=== PATIENT | female | born 1990 | race African-American/Black ===

== ENCOUNTER → 2021-01-25 13:17 | Outpatient (CLI) | payer OTHER, SELFPAY ==
--- NOTE | ~2021-01-25 | US_ITS ---
EXAMINATION: US OB transvaginal DATE: 01/25/2021 13:43 INDICATION: Gestational dating TECHNIQUE: Real-time transvaginal obstetric ultrasound. FINDINGS: No prior studies for comparison. The uterus measures 9.7 x 5.7 x 5.6 cm. There is an intrauterine gestational sac demonstrated, althou gh no pole or yolk sac is identified. There is a 2.5 cm right ovarian cyst. No free fluid in th e pelvis. IMPRESSION: 1. Intrauterine gestational sac without pole or yolk sac, likely due to early gestational age. Recommend follow-up with quantitative beta-hCG levels and ultrasound as clinically indicated. 2: Corpus luteal cyst of the right ovary measuring 2.5 cm. Reviewed, dictated and finalized at location B. IMPRESSION: 1. Intrauterine gestational sac without pole or yolk sac, likely due to e dale gestational age. Recommend follow-up with quantitative beta-hCG levels and ultrasound as clinically indicated. 2: Corpus luteal cyst of the right ovary measuring 2.5 cm.
== END ==
PROVIDERS: Visit Provider Obstetrics & Gynecology
DX: Z34.91 Encounter for supervision of normal pregnancy, unspecified, first trimester (principal); Z3A.00 Weeks of gestation of pregnancy not specified; N83.11 Corpus luteum cyst of right ovary
CPT/HCPCS: 76817

== ENCOUNTER → 2021-02-05 10:14 | Outpatient (CLI) | payer OTHER, SELFPAY ==
--- NOTE | ~2021-02-05 | US_ITS ---
EXAMINATION: US OB transvaginal DATE: 02/05/2021 10:49 INDICATION: Uncertain date TECHNIQUE: Real-time pelvic transabdominal and transvaginal ultrasound was performed. COMPARISON: 01/05/2021 FINDINGS: The uterus measures 11.1 x 6.3 x 6.9 cm. There is an intrauterine gestational sac. A yolk sac is identified. heart motion is identified measuring 121 beats per minute (bpm) by M-mode Do ppler. The crown rump length measures 3 mm , which correlates with an estimated gestational age of 5 weeks and 6 day(s) (+/-) 4 day(s). The right ovary is not visualized however no right adnexal abnormality is seen. The left ovary measur es 2.7 x 1.7 x 1.8 cm. There is normal vascular flow in the left ovary. There is no free fluid in the pelvis. IMPRESSION: 1. Live intrauterine with an estimated gestational age of 5 weeks and 6 day(s) (+/-) 4 day( s) and an estimated delivery date of 10/02/2021. Reviewed, dictated and finalized at location A. IMPRESSION: 1. Live intrauterine with an estimated gestational age of 5 weeks and 6 day(s) (+/-) 4 day(s) and an estimated delivery date of 10/02/2021.
== END ==
PROVIDERS: Visit Provider Obstetrics & Gynecology
DX: Z36.87 Encounter for antenatal screening for uncertain dates (principal); Z3A.01 Less than 8 weeks gestation of pregnancy
CPT/HCPCS: 76817

== ENCOUNTER 2021-04-07 11:28 | Emergency (ER) | payer OTHER, MEDICAID, SELFPAY ==
[2021-04-07 11:58] VITALS: BP 135/83; PULSE 110; RESP 20; TEMP 36.3; O2SAT 100
--- NOTE | 2021-04-07 12:57 | PC.NURSE ---
Pt states she felt movement during FHT assessment, pt has non-labored respirations, NAD observed
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
== END 2021-04-07 13:38 | disposition home or self-care (01) ==
PROVIDERS: Emergency Provider Nurse Practitioner
DX: Z04.1 Encounter for examination and observation following transport accident (principal); O16.2 Unspecified maternal hypertension, second trimester; Z3A.14 14 weeks gestation of pregnancy; V49.40XA Driver injured in collision with unspecified motor vehicles in traffic accident, initial encounter
CPT/HCPCS: 99282

== ENCOUNTER 2021-04-22 09:36 | Observation (INO) | payer OTHER, MEDICAID, SELFPAY ==
[2021-04-22] VITALS (14 sets, daily range): BP systolic 106–138; BP diastolic 57–86; PULSE 89–125; RESP 16–24; TEMP 36.4–36.7; O2SAT 98–100
--- NOTE | 2021-04-22 09:40 | ECG_ITS ---
Measurements Intervals [place] Rate: 117 P: 37 [place]: 144 QRS: 12 QRSD: 79 T: 15 QT: 313 QTc: 437 Interpretive Statements SINUS TACHYCARDIA DELAYED PRECORDIAL R/S TRANSITION ABNORMAL ECG Electronically Signed On 04-22-2021 11:44:42 CDT by Michael Trotter D.O.
[2021-04-22 10:20] LABS: Basophils Percent Auto 0.2 % (0.2-1.2); Eosinophils Absolute Auto 0.2 K/mm3 (0-0.3); Hemoglobin 11.8 g/dL (12.0-15.0); Immature Granulocyte Absolute 0.05 K/mm3 (0.00-0.031); Immature Granulocyte Percent A 0.5 % (0-0.5); Lymphocytes Absolute Auto 2.22 K/mm3 (0.9-3.2); Lymphocytes Percent Auto 21.9 % (18.3-44.2); Mean Corpuscular HGB Conc 31.9 g/dl (32-36); Mean Corpuscular Volume 87.9 fl (80-100); Mean Platelet Volume 11.2 fl (7.4-10.4); Monocytes Percent Auto 10.3 % (2.6-8.5); Neutrophils Absolute Auto 6.6 K/mm3 (1.3-6.7); Neutrophils Percent Auto 65.1 % (45.5-73.1); Platelet Count Result 244 k/mm3 (150-375); Red Blood Count 4.21 M/mm3 (4.2-5.4); Red Cell Distribution Width 13.3 % (11.5-14.5); White Blood Count 10.1 K/mm3 (4.5-10.0)
[2021-04-22 10:32] LABS: Anion Gap 8 mmol/L (8-16); Blood Urea Nitrogen 5 mg/dL (7-17); Calcium 8.7 mg/dL (8.4-10.2); Carbon Dioxide 21 mmol/L (22-30); Chloride 107 mmol/L (98-107); Estimated Glomerular Filt Rate > 60; Glucose 105 mg/dL (65-110); Potassium 2.9 mmol/L (3.4-5.0); Sodium 136 mmol/L (137-145)
[2021-04-22 11:52] LABS: Add Urine Microscopic? YES; Appearance Urine Clear (Clear); Bilirubin Urine Negative (Negative); Blood Urine Negative (Negative); Color Urine Yellow (Yellow); Glucose Urine UA Negative (Negative); Ketones Urine Negative (Negative); Leukocyte Esterase Ur Negative LEU/UL (Negative); Mucus Urine Rare /lpf; Nitrate Urine Negative (Negative); Protein Urine 1+ mg/dL (Negative); RBC Urine 0-2 /hpf (0-2); Squamous Epithelial Cell Urine Rare /hpf (Few); Urobilinogen Urine Negative mg/dL (<2.0); WBC Urine 0-3 /hpf
--- NOTE | 2021-04-22 12:47 | ED.GENADULT ---
HPI - General Adult General Chief complaint: Recheck/Abnormal Lab/Rx Stated complaint: dizziness, htn Time Seen by Provider: 04/22/21 11:28 Source: patient, EMS and RN notes reviewed Mode of arrival: EMS Limitations: no limitations History of Present Illness HPI narrative: Patient is 31 years old -M[place]ese female presents to the ED by ambulance because of dizziness. Patient was scheduled to see her VP DESIGN today for regular checkup, bending over to sign some papers then got dizzy. The dizziness resolves a few minutes on arrival of the EMT. Currently patient is asymptomatic. Patient is 2 para 1 0, history of preeclampsia last currently on baby aspirin. Patient does not smoke or drink or uses drugs. Healthy otherwise.. Dr. Fields told me that patient blood pressure was 220/120 in the office and was diaphoretic and DID not look right. That is why they sent her to the emergency room. Related Data Home Medications Medication Instructions Recorded Confirmed aspirin [Adult Aspirin] PO 04/22/21 Allergies Allergy/AdvReac Type Severity Reaction Status Date / Time No Known Drug Allergies Allergy Other Verified 04/22/21 11:08 Review of Systems Review of Systems: Narrative: CONSTITUTIONAL: Denies fever, chills, or sweats. EYES: Denies visual changes, redness, or discharge. ENT: Denies rhinorrhea, congestion, sore throat, or otalgia. CARDIOVASCULAR: Denies chest pain, palpitations, or edema. RESPIRATORY: Denies cough or dyspnea. GASTROINTESTINAL: Denies abdominal pain, nausea, vomiting, or diarrhea. GENITOURINARY: Denies dysuria or hematuria. SKIN: Denies rash or itching. MUSCULOSKELETAL: Denies back pain, joint pain, or myalgia. NEUROLOGIC: Denies headache, numbness, or weakness. PSYCHIATRIC: Denies anxiety or depression. [facility] Past Medical History Medical History HTN (hypertension) Surgical History Surgical History H/O: Family History Family History Other Diabetes mellitus Social History Social History Smoking status: Never smoker Alcohol intake: never Substance use: never Exam Narrative: Exam Narrative: General appearance: Well-developed, well-nourished Skin: Normal color Head: Normocephalic, nontraumatic Eyes: Clear conjunctiva ENT: Oropharynx normal, ears normal, nose normal Neck: Supple, nontender Chest and respiratory: Airway patent, no respiratory distress, no accessory muscle use Heart: Regular rate/rhythm Abdomen: Soft, nontender, no organomegaly, quiet bowel sounds Vascular: Normal peripheral pulses, normal capillary refill. Musculoskeletal: Normal range of motion, nontender back Neurologic: Alert and oriented ?3, ADVERTISING DESIGNER is normal as tested, no gross motor deficit Course Course Emergency Course: Patient presents with dizziness lasted for few minutes and standing position. Please look at the differential diagnosis below. Labs, orthostatic blood pressure, UA, EKG ordered. Further plan to follow Reevaluation(s) Reevaluation #1: Currently patient feeling great, denying any symptoms Date: 04/22/21 Time: 12:51 Consultations Consultation #1: Dr. Fields Admit to unit Date: 04/22/21 Time: 13:07 Vital Signs Vital signs: Vital Signs Temperature 36.4 C 04/22/21 09:41 Pulse Rate 118 H 04/22/21 09:41 Respiratory Rate 18 04/22/21 09:41 Blood Pressure 122/81 04/22/21 09:41 Pulse Oximetry 100 04/22/21 09:41 Temperature 36.4 C 04/22/21 09:
[2021-04-22] MEDS: POTASSIUM CHLORIDE 20 MEQ PACKET (FOR LIQUID) 40 MEQ PO (12:57)
[2021-04-22] MEDS: ONDANSETRON INJ 4 MG/2 ML VIAL IV PUSH (14:01)
--- NOTE | 2021-04-22 14:06 | PC.NURSE ---
patient dinner ordered at this time.
--- NOTE | 2021-04-22 15:00 | PC.NURSE ---
patient's KCL slowed down to 50meq/hr due to patient's IV burning and painful with higher rate.
--- NOTE | 2021-04-22 17:52 | ADMGEN ---
This patient, Joselyn Boyle, was admitted to Medical Room 250-01. Patient/family oriented to hospital policies and general routines including ID bracelet, bed and alarms, visiting hours, pain management, procedures, bathroom and other care routines, personal items, smoking policy, room service/diet, and visiting hours. Information on how to activate the Rapid Response Team has been discussed. Patient/Family are encouraged to report perceived risks to care and to ask questions if they do not understand what they are told or what they should do.
[2021-04-23] VITALS (7 sets, daily range): BP systolic 95–132; BP diastolic 49–72; PULSE 81–110; RESP 16–20; TEMP 36.3–36.4; O2SAT 98–100
[2021-04-23 06:05] LABS: Anion Gap 6 mmol/L (8-16); Blood Urea Nitrogen 5 mg/dL (7-17); Calcium 8.9 mg/dL (8.4-10.2); Carbon Dioxide 22 mmol/L (22-30); Chloride 107 mmol/L (98-107); Estimated Glomerular Filt Rate > 60; Glucose 81 mg/dL (65-110); Potassium 3.9 mmol/L (3.4-5.0); Sodium 135 mmol/L (137-145)
--- NOTE | 2021-04-23 12:01 | PM.OBTRLD ---
OB - Triage/Final Diagnosis Visit Information Comments/Additional reasons for admission: I have assessed the risk for this patient, Joselyn Boyle, and determined that she would benefit from observation care. 31 y/o admittied for elevated pressure 212/120 in office after complaints of dizziness and coldsweats. Patient sent to ER for evaulation. abnormal findings acute hypokalemia. otherwise negative. positive heart tones on dopplers. Patient reports feels fine now had on overwhelming feeling of demise when entering office when symptoms began. Patient denies chest pain headaches, vomitting or diarrhea, or trauma. Patient discharged home with follow up in 1 week. Patient declines anxiety medications at this time. present with patient. Evaluation Laboratory results: Laboratory Tests 04/22/21 04/22/21 04/22/21 10:02 10:02 11:33 WBC 10.1 H RBC 4.21 Hgb 11.8 L Hct 37.0 MCV 87.9 MCH 28.0 MCHC 31.9 L RDW 13.3 Plt Count 244 MPV 11.2 H Immature Gran % (Auto) 0.5 Neut % (Auto) 65.1 Lymph % (Auto) 21.9 [place] % (Auto) 10.3 H Eos % (Auto) 2.0 Baso % (Auto) 0.2 Lymph # (Auto) 2.22 [place] # (Auto) 1.0 H Eos # (Auto) 0.2 Baso # (Auto) 0.0 Abs Immat Gran (auto) 0.05 H Absolute Neuts (auto) 6.6 Absolute Nucleated RBC 0.0 Nucleated RBC % 0.0 Sodium 136 L Potassium 2.9 L Chloride 107 Carbon Dioxide 21 L Anion Gap 8 BUN 5 L Creatinine 0.70 Estim Creat Clear Calc Not Reportable Estimated GFR > 60 Glucose 105 Calcium 8.7 Urine Color Yellow Urine Appearance Clear Urine pH 6.0 Ur Specific [place] 1.010 Urine Protein 1+ H Urine Glucose (UA) Negative Urine Ketones Negative Ur Blood (Man) Negative Urine Nitrate Negative Urine Bilirubin Negative Urine Urobilinogen Negative Leukocyte Esterase Rfl Negative Urine RBC 0-2 Urine WBC 0-3 Ur Squamous Epith Cells Rare Urine Mucus Rare 04/23/21 05:35 WBC RBC Hgb Hct MCV MCH MCHC RDW Plt Count MPV Immature Gran % (Auto) Neut % (Auto) Lymph % (Auto) [place] % (Auto) Eos % (Auto) Baso % (Auto) Lymph # (Auto) [place] # (Auto) Eos # (Auto) Baso # (Auto) Abs Immat Gran (auto) Absolute Neuts (auto) Absolute Nucleated RBC Nucleated RBC % Sodium 135 L Potassium 3.9 Chloride 107 Carbon Dioxide 22 Anion Gap 6 L BUN 5 L Creatinine 0.70 Estim Creat Clear Calc Not Reportable Estimated GFR > 60 Glucose 81 Calcium 8.9 Urine Color Urine Appearance Urine pH Ur Specific [place] Urine Protein Urine Glucose (UA) Urine Ketones Ur Blood (Man) Urine Nitrate Urine Bilirubin Urine Urobilinogen Leukocyte Esterase Rfl Urine RBC Urine WBC Ur Squamous Epith Cells Urine Mucus Vital signs: Vital Signs - 24 hr 04/22/21 12:48 04/22/21 12:49 04/22/21 12:50 Temperature Pulse Rate 96 111 H 125 H Respiratory Rate Blood Pressure 119/80 106/73 121/86 Pulse Oximetry 04/22/21 13:04 04/22/21 14:01 04/22/21 15:27 Temperature 36.7 C Pulse Rate 108 H 89 95 Respiratory Rate 18 24 H 18 Blood Pressure 138/77 108/76 113/64 Pulse Oximetry 98 99 100 04/22/21 17:25 04/22/21 17:30 04/22/21 20:00 Temperature 36.6 C Pulse Rate 100 97 116 H Respiratory Rate 16 17 Blood Pressure 115/67 120/66 Pulse Oximetry 100 100 04/22/21 21:27 04/23/21 00:00 04/23/21 04:00 Temperature 36.6 C Pulse Rate 112 H 81 110 H Respiratory Rate 16 Blood Pressure 131/57 L Pulse Oximetry 100 04/23/21 05:06 04/23/21 08:00 Temperature 36.3 C L Pulse Rate 90 90 Respiratory Rate 16 Blood Pressure 95/49 L Pulse Oximetry 98 Final Diagnosis (1) Dizziness: Code(s): R42 - Dizziness and giddiness Status: Acute (2) : Qualifiers: Weeks of gestation: 16 weeks Qualified Code(s): Z3A.16 - 16 weeks gestation of pregna
== END 2021-04-23 12:45 | disposition home or self-care (01) ==
LOC: ANHED 13:09 → ANH2MED 04-23 11:59
PROVIDERS: Student in an Organized Health Care Education/Training Program; Admitting Provider Obstetrics & Gynecology Gynecology; Emergency Provider Emergency Medicine; Visit Provider Obstetrics & Gynecology
DX: O16.2 Unspecified maternal hypertension, second trimester (principal); O26.892 Other specified pregnancy related conditions, second trimester; R42 Dizziness and giddiness; E87.6 Hypokalemia; F41.9 Anxiety disorder, unspecified; Z3A.16 16 weeks gestation of pregnancy
CPT/HCPCS: 36415; 80048; 81001; 85025; 93005; 96365; 96366; 96375; 99285; A9270; G0378; J2405; J3480

== ENCOUNTER → 2021-05-06 08:58 | Outpatient (CLI) | payer OTHER, MEDICAID, SELFPAY ==
--- NOTE | ~2021-05-06 | US_ITS ---
EXAMINATION: US OB /maternal detail DATE: 05/06/2021 13:35 INDICATION: anatomic survey. TECHNIQUE: Real-time ultrasound of the pelvis was performed. COMPARISON: Ultrasound 02/05/2021, 01/25/2021 FINDINGS: There is a single living fetus in vertex presentation. The placenta is posterior, 5.0 cm from the ce rvix. heart rate is 159 beats per minute (bpm). The amniotic fluid volume is subjectively carmen l. The following biometric data were obtained: Biparietal diameter (BPD): 4.7 cm; head circumference (HC): 17.1 cm; abdominal circumference (AC): 14 .0 cm; femur length (FL): 2.8 cm. These measurements are concordant. Estimated weight is 275 g +/- 41 g, which correlates with 70th percentile when 10/02/21 is used a s estimated date of delivery. As single measurements, these parameters are each equal to the following estimated gestational ages w ith ranges of +/- 2 standard deviations: BPD: 20 weeks 2 days (18 weeks 4 days - 22 weeks 0 days). HC: 19 weeks 5 days (18 weeks 1 days - 21 weeks 1 days). AC: 19 weeks 3 days (17 weeks 2 days - 21 weeks 3 days). FL: 18 weeks 4 days (16 weeks 5 days - 20 weeks 3 days). estimated gestational age based solely on measurements from this exam is 19 weeks 4 days +/- 1 weeks 3 days. The cerebral ventricles, cerebellum, cisterna magna, nuchal fold, and visualized portions of the spin e are normal. The heart is normal. The diaphragm, stomach, kidneys, and bladder are normal. There are two umbilical arteries to yield a 3-vessel cord. The cord insertion is normal. IMPRESSION: 1. Single living fetus in vertex presentation. 2. Estimated weight is 275 g +/- 41 g, which correlates with 70th percentile when 10/02/21 is us ed as estimated date of delivery. This date was set by ultrasound on 02/05/2021. 3. Normal anatomic survey. Reviewed, dictated and finalized at location A. IMPRESSION: 1. Single living fetus in vertex presentation. 2. Estimated weight is 275 g +/- 41 g, which correlates with 70th percen tile when 10/02/21 is used as estimated date of delivery. This date was set by sheri rowley on 02/05/2021. 3. Normal anatomic survey.
== END ==
PROVIDERS: Visit Provider Obstetrics & Gynecology
DX: Z34.92 Encounter for supervision of normal pregnancy, unspecified, second trimester (principal); Z3A.19 19 weeks gestation of pregnancy
CPT/HCPCS: 76805

== ENCOUNTER → 2021-06-23 12:54 | Outpatient (CLI) | payer OTHER, MEDICAID, SELFPAY ==
--- NOTE | ~2021-06-23 | US_ITS ---
EXAMINATION: US OB follow up DATE: 06/23/2021 13:20 INDICATION: Expected size greater than expected for estimated gestational age. TECHNIQUE: Real-time ultrasound of the pelvis was performed. The interpreting radiologist was not pre sent for the study. COMPARISON: 05/06/2021 and 01/25/2021 FINDINGS: There is a single living fetus in transverse lie. The placenta is posterior and not low-lying. Normal cervical length of 5.4 cm. heart rate is 136 beats per minute (bpm). The amniotic fluid index is 15.7 cm, which is normal (5th%-95%: 9.7-22.1 cm at 25 weeks estimated gestational age). The following biometric data were obtained: BPD: 6.8 cm -> 27 weeks 3 days Head circumference: 25.0 cm -> 27 weeks 1 days Abdominal circumference: 22.2 cm -> 26 weeks 5 days Femur length: 4.8 cm -> 26 weeks 1 days These measurements are concordant. Head circumference to abdominal circumference ratio: 1.13 (normal range 1.05-1.22). Estimated weight: 954 g (+/-) 143 g or 2 lbs. 2 oz. (+/-) 5 oz. IMPRESSION: 1. Single living fetus in transverse lie with heart rate of 136 bpm. 2. Normal amniotic fluid index of 15.7 cm. 3. Estimated weight is 81st percentile by Hadlock criteria when 10/02/2021 is used as the estimat ed date of delivery (FERNIE). Please correlate with clinical information or earlier ultrasounds for most accurate FERNIE. Reviewed, dictated and finalized at location A. IMPRESSION: 1. Single living fetus in transverse lie with heart rate of 136 bpm. 2. Normal amniotic fluid index of 15.7 cm. 3. Estimated weight is 81st percentile by Hadlock criteria when 10/02/2021 is used as the estimated date of delivery (FERNIE). Please correlate with clinical information or earlier ultrasounds for most accurate FERNIE.
== END ==
PROVIDERS: Visit Provider Obstetrics & Gynecology Gynecology
DX: O36.63X3 Maternal care for excessive fetal growth, third trimester, fetus 3 (principal); Z3A.27 27 weeks gestation of pregnancy
CPT/HCPCS: 76816

== ENCOUNTER → 2021-08-24 15:08 | Outpatient (CLI) | payer OTHER, MEDICAID, SELFPAY ==
--- NOTE | ~2021-08-24 | US_ITS ---
EXAMINATION: US OB follow up DATE: 08/24/2021 15:30 INDICATION: Estimated size greater than expected for estimated gestational age during third trimester . TECHNIQUE: Real-time ultrasound of the pelvis was performed. The interpreting radiologist was not pre sent for the study. COMPARISON: 06/23/2021 FINDINGS: There is a single living fetus in vertex presentation. The placenta is posterior and not low-lying. heart rate is 135 beats per minute (bpm). The amniotic fluid index is 13.1 cm, which is normal (5th%-95%: 8.1-24.8 cm at 34 weeks estimated gestational age). The following biometric data were obtained: BPD: 8.9 cm -> 36 weeks 1 days Head circumference: 31.7 cm -> 35 weeks 5 days Abdominal circumference: 30.2 cm -> 34 weeks 1 days Femur length: 6.2 cm -> 32 weeks 2 days The femur length to biparietal diameter ratio is slightly greater than 2 standard deviations below [facility] mean. These measurements are otherwise concordant. Head circumference to abdominal circumference ratio: 1.05 (normal range 0.94-1.11). Estimated weight: 2321 g (+/-) 348 g or 5 lbs. 2 oz. (+/-) 12 oz. IMPRESSION: 1. Single living fetus in vertex presentation with heart rate of 135 bpm. 2. Normal amniotic fluid index of 13.1 cm. 3. Estimated weight is 32nd percentile by Hadlock criteria when 10/02/2021 is used as the estimat ed date of delivery (FERNIE). Please correlate with clinical information or earlier ultrasounds for most accurate FERNIE. 4. Femur length to biparietal diameter ratio slightly greater than 2 standard deviations below the va an. Reviewed, dictated and finalized at location A. 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 Single living fetus in vertex presentation with heart rate of 135 bpm. 2. Normal amniotic fluid index of 13.1 cm. 3. Estimated weight is 32nd percentile by Hadlock criteria when 10/02/2021 is used as the estimated date of delivery (FERNIE). Please correlate with clinical information or earlier ultrasounds for most accurate FERNIE. 4. Femur length to biparietal diameter ratio slightly greater than 2 standard d eviations below the mean.
== END ==
PROVIDERS: Visit Provider Obstetrics & Gynecology
DX: O36.63X0 Maternal care for excessive fetal growth, third trimester, not applicable or unspecified (principal); Z3A.00 Weeks of gestation of pregnancy not specified
CPT/HCPCS: 76816

== ENCOUNTER 2021-09-29 16:23 | Outpatient (CLI) | payer OTHER, MEDICAID, SELFPAY ==
[2021-09-29 17:27] LABS: Basophils Percent Auto 0.2 % (0.2-1.2); Eosinophils Absolute Auto 0.1 K/mm3 (0-0.3); Hematocrit 39.2 % (37.0-47.0); Hemoglobin 12.7 g/dL (12.0-15.0); Immature Granulocyte Absolute 0.02 K/mm3 (0.00-0.031); Immature Granulocyte Percent A 0.3 % (0-0.5); Lymphocytes Absolute Auto 1.15 K/mm3 (0.9-3.2); Lymphocytes Percent Auto 20.1 % (18.3-44.2); Mean Corpuscular HGB Conc 32.4 g/dl (32-36); Mean Corpuscular Hemoglobin 28.3 pg (26-34); Mean Corpuscular Volume 87.3 fl (80-100); Mean Platelet Volume 12.4 fl (7.4-10.4); Monocytes Absolute Auto 0.7 K/mm3 (0.1-0.6); Monocytes Percent Auto 11.5 % (2.6-8.5); Neutrophils Absolute Auto 3.8 K/mm3 (1.3-6.7); Neutrophils Percent Auto 66.9 % (45.5-73.1); Platelet Count Result 179 k/mm3 (150-375); Red Blood Count 4.49 M/mm3 (4.2-5.4); White Blood Count 5.7 K/mm3 (4.5-10.0)
[2021-09-30 11:48] LABS: Rapid Plasma Reagin Non-Reactive (NonReactive)
== END 2021-09-29 16:24 | disposition home or self-care (01) ==
PROVIDERS: Visit Provider Obstetrics & Gynecology
DX: Z34.93 Encounter for supervision of normal pregnancy, unspecified, third trimester (principal); Z3A.00 Weeks of gestation of pregnancy not specified
CPT/HCPCS: 36415; 85025; 86592; 86850; 86900; 86901

== ENCOUNTER 2021-09-30 06:32 | Inpatient (IN) | payer OTHER, MEDICAID, SELFPAY ==
--- NOTE | 2021-09-10 12:46 | PC.NURSE ---
PREVIOUS C/S--PATIENT STATES SHE IS GOING TO --CONSENT SIGNED
[2021-09-30] VITALS (58 sets, daily range): BP systolic 72–145; BP diastolic 22–110; PULSE 73–127; RESP 15–20; TEMP 36.4–37.3; O2SAT 98–100; BMI 43.6
--- NOTE | 2021-09-30 07:11 | LDADM ---
This patient, Joselyn Boyle, was admitted to Labor/Delivery/Recovery 120 on 09/30/21 at 06:32. Plans for labor, pain management and were discussed with patient. Patient/family oriented to hospital policies and general routines including ID bracelet, bed and alarms, visiting hours, pain management, procedures, bathroom and other care routines, personal items, smoking policy, room service/diet and guest tray routines, security routines, and visiting hours. Patient/Family are encouraged to report perceived risks to care and to ask questions if they do not understand what they are told or what they should do. See OBIX for further documentation.
[2021-09-30] MEDS: LACTATED RINGERS 1,000 ML 999 ML IV CONT ×2 (07:13→08:07)
--- NOTE | 2021-09-30 07:14 | P.PNAN_ITS ---
Anes - Initial Pre Proc Eval Procedure: Operation Date: 09/30/21 09:00 Proposed Procedures Repeat Section - Jose David MD Date/Time: 09/30/21 07:14 Surgeon: Jose David MD Pre Op Diagnosis: c/s Patient Data Age: 31 Gender: F Height: Weight: Allergies Allergy/AdvReac Type Severity Reaction Status Date / Time No Known Drug Allergies Allergy Other Verified 04/22/21 11:08 Home Medications Medication Instructions Recorded Confirmed Type DHA 200 mg PO DAILY 04/22/21 09/30/21 History aspirin 81 mg PO DAILY 04/22/21 09/30/21 History ergocalciferol (vitamin D2) 1,250 mcg PO WEEKLY 04/22/21 09/30/21 History Patient hx anesthesia problems: none Family hx anesthesia problems: none Results Review: All pre-operative results and documents have been reviewed as part of the pre-operative evaluation. [facility] Past Medical History Medical History (Updated 04/23/21 @ 12:01 by Jose David MD) Anxiety HTN (hypertension) Surgical History Surgical History H/O: Family History Family History (Updated 09/10/21 @ 12:31 by Erik Weir RN) Sibling Diabetes type 1, controlled Diabetes type 2, uncontrolled Grandparent Diabetes type 2, uncontrolled Father Diabetes type 2, uncontrolled Social History Social History Smoking status: Never smoker Second hand tobacco smoke exposure: No Alcohol intake: never Substance use: never Gender identity (if verbalized by the patient): Female Spiritual care concerns: No Anes - Eval Final PreProcedure Day of Procedure 09/30/21 07:14 Patient weight: morbidly obese Heart: regular rate and rhythm Lungs: clear to auscultation and normal air movement Airway: Mallampati scale class II Neurological: alert and oriented Last oral intake: >/= 8 hours ASA classification: III Emergent: no Anesthetic plan: proceed Anesthesia type and monitoring: regional spinal and standard monitoring Results Review: All pre-operative results and documents have been reviewed as part of the pre-operative evaluation. Informed Consent: The patient's anesthetic plan and its attendant risks and benefits were discussed with the patient/family/POA. Questions were solicited and answers provided to the satisfaction of the patient/family/POA.
--- NOTE | 2021-09-30 08:37 | PM.IMHP ---
H&P: HPI History of Present Illness Date/Time: 09/30/21 08:37 31 y/o at 39 and 5 7 weeks by 1st trimester ultrasound for HCC of October 02, 2021 presented to Labor and delivery for scheduled repeat this as patient's complicated by a prior delivery at 35 weeks with severe preeclampsia. Patient reports positive movement and denies leaking of fluid or contractions. Chief Complaint: desires repeat csection Review of Systems Constitutional: Constitutional: Reports fatigue Comments: Back pain PMFSH Past Medical History Medical History Anxiety HTN (hypertension) Surgical History Surgical History (Updated 09/30/21 @ 08:40 by Jose David MD) H/O: H/O: Family History Family History Sibling Diabetes type 1, controlled Diabetes type 2, uncontrolled Grandparent Diabetes type 2, uncontrolled Father Diabetes type 2, uncontrolled Social History Social History Smoking status: Never smoker Second hand tobacco smoke exposure: No Alcohol intake: never Substance use: never Gender identity (if verbalized by the patient): Female Spiritual care concerns: No Meds Home Medications and Allergies Home Medications Medication Instructions Recorded Confirmed Type DHA 200 mg PO DAILY 04/22/21 09/30/21 History aspirin 81 mg PO DAILY 04/22/21 09/30/21 History ergocalciferol (vitamin D2) 1,250 mcg PO WEEKLY 04/22/21 09/30/21 History Allergies Allergy/AdvReac Type Severity Reaction Status Date / Time No Known Drug Allergies Allergy Other Verified 04/22/21 11:08 Vital Signs Vital Signs - 24 hr 09/30/21 07:18 09/30/21 07:30 09/30/21 07:45 Temperature 37.3 C Pulse Rate 99 92 92 Blood Pressure 138/90 131/96 H 133/86 09/30/21 08:01 09/30/21 08:16 Temperature Pulse Rate 85 127 H Blood Pressure 123/87 104/73 Exam Const: General: cooperative Resp: Auscultation: clear to auscultation bilaterally Cardio: Rate: regular rate Rhythm: regular rhythm GI: Percussion: Yes other ( sever abdomen fundal height of 39 senna) Assessment and Plan Assessment and plan (1) H/O: : Code(s): Z98.891 - History of uterine scar from previous surgery Status: Acute Assessment and Plan: plan for a repeat csection . risk and benefits reviewed with patient detail. patient verbally agrees to proceed with section.
--- NOTE | 2021-09-30 08:41 | WPDHPUPDATE1 ---
History and Physical Update Update Date/Time: 09/30/21 08:41 History and Physical has been reviewed, including an updated exam of the patient. There are NO changes in the patient's condition. Risks, benefits, and alternatives have been discussed and questions answered. Patient agrees to proceed with procedure.
[2021-09-30] MEDS: ceFAZolin 2 GM/D5W 50 ML 2 GM/50 ML BAG IVPB (08:44)
--- NOTE | 2021-09-30 09:42 | PM.OBPRVD ---
OB - Delivery Note Procedure Delivery date: 09/30/21 Procedure: Procedures Operation Date: 09/30/21 09:00 Actual Procedure Side Surgeon p Section Jose David MD events: Previous Intrapartal events: None Route of delivery: Quantitative Blood Loss (ml): 295 Anesthesia type: Spinal Disposition: PACU [place] Baby Date of : 09/30/21 Time of : 09:09 Weeks of gestation at delivery: 40 gender: Male Weight (pounds): 6 Weight (ounces): 12 presentation: vertex position: Left Occiput Posterior Placenta delivery description: Spontaneous cord vessel description: 3 Vessels, Clamped/Cut and Around Body x1 score one minute: 8 score five minutes: 9
--- NOTE | 2021-09-30 09:44 | P.OP_ITS ---
Procedure Note - Detailed Date of Procedure 09/30/21 Pre-op Diagnosis c/s Post-op Diagnosis same Procedure Performed Repeat Surgeon Jose David MD Anesthesia spinal Findings male infant and vertex and right occiput posterior position meconium stained fluid was cord around foot Description of Procedure patient was taken the operating room with IV running she was prepped draped in normal sterile fashion and placed in a supine position with a left tilt. A Pfannenstiel skin incision was made with a scalpel and carried down to the underlying layer of fascia this fascia incision was then extended bilaterally with Callahan scissors. Superior aspect of the incision was grasped with Katelyn clamps elevated dissected off the rectus muscles. Attention was turned to the inferior aspect of the incision grasped with Katelyn clamps and elevated and dis sected off the rectus muscles. The muscles were in the lip midline peritoneum was entered bluntly bladder blade was inserted the vesicouterine peritoneum was grasped with the eyes and sharply with Metzenbaum scissors. A bladder flap was created sharply and bluntly bladder blade was reinserted the lower uterine segment was incised in a transverse fashion with the scalpel. And extended bluntly. The head was delivered atraumatically the remainder of the fetus was delivered cord was clamped and cut cord blood was obtained cord gases was obtained the placenta delivered spontaneously the uterus was cleared of all clot and debris and left in the abdomen uterus was closed with 0 Vicryl suture in a running locked fashion 2nd layer of same suture was used to imbricate this incision the gutters were irrigated and cleared of all clots and debris and the fascia was closed with 0 Vicryl suture the subcutaneous tissue was irrigated hemostasis was assured throughout plain gut and the skin was closed with 4-0 Vicryl on a Pollo needle sponge lap needle counts were correct x2 patient received 2g of Ancef prior to skin incision Estimated Blood Loss 295 Urine Output 200 Drains Yes Packing No Pathology none sent Complications None Condition stable Disposition PACU
[2021-09-30] MEDS: OXYTOCIN 30 UNITS/NS 500 ML 30 UNITS/500 ML BAG 125 UNITS IV CONT (10:07)
[2021-09-30] MEDS: MORPHINE SULFATE INJ (*CRX) 10 MG/ML AMP 2 MG IV PUSH (11:12)
[2021-09-30] MEDS: diphenhydrAMINE HCl INJ 50 MG/ML VIAL 25 MG IV PUSH (11:32)
--- NOTE | 2021-09-30 11:56 | PC.NURSE ---
Patient transferred to post room #285 per stretcher. Support person present. Oriented to unit, room, information board, rooming in, admission packet and security measures. Patient verbalizes understanding.
[2021-09-30] MEDS: KETOROLAC 30 MG/ML VIAL (*BKC) IV PUSH (14:26)
[2021-09-30] MEDS: NALBUPHINE HCL INJ 10 MG/ML AMPUL 2 MG IV PUSH (15:03)
[2021-09-30] MEDS: LORATADINE 10 MG TABLET PO (15:46)
[2021-09-30] MEDS: DEXTROSE 5%/0.45% SOD CHL 1,000 ML 125 ML IV CONT (16:16)
[2021-09-30] MEDS: IBUPROFEN 600 MG TABLET PO (21:04)
[2021-09-30] MEDS: SIMETHICONE 80 MG TAB.CHEW PO (21:04)
[2021-10-01] MEDS: HYDROcodone/acetaminophen (*CRX) 10-325 MG TABLET 1 TAB PO ×3 (01:03→19:59)
[2021-10-01 03:30] VITALS: BP 116/77; PULSE 99; RESP 18; TEMP 36.6
[2021-10-01] MEDS: IBUPROFEN 600 MG TABLET PO ×3 (03:55→19:59)
[2021-10-01 05:27] LABS: Basophils Percent Auto 0.3 % (0.2-1.2); Eosinophils Absolute Auto 0.1 K/mm3 (0-0.3); Hematocrit 34.7 % (37.0-47.0); Immature Granulocyte Absolute 0.03 K/mm3 (0.00-0.031); Immature Granulocyte Percent A 0.4 % (0-0.5); Lymphocytes Percent Auto 17.9 % (18.3-44.2); Mean Corpuscular HGB Conc 31.7 g/dl (32-36); Mean Corpuscular Hemoglobin 27.7 pg (26-34); Mean Corpuscular Volume 87.4 fl (80-100); Mean Platelet Volume 12.7 fl (7.4-10.4); Monocytes Absolute Auto 0.8 K/mm3 (0.1-0.6); Monocytes Percent Auto 11.4 % (2.6-8.5); Platelet Count Result 155 k/mm3 (150-375); Red Blood Count 3.97 M/mm3 (4.2-5.4); Red Cell Distribution Width 15.9 % (11.5-14.5); White Blood Count 7.3 K/mm3 (4.5-10.0)
--- NOTE | 2021-10-01 06:52 | WPDANLDNPN2 ---
Anes-Prog Note L&D-Neuraxial Date/Time: 10/01/21 06:52 Neuraxial medications: intrathecal PF morphine Opiod-related complaints: none Patient feedback: Patient satisfied with post-operative pain management.
--- NOTE | 2021-10-01 06:52 | WPDANLDPN2 ---
Anes-Prog Note L&D Date/Time: 10/01/21 06:52 Comfortable throughout: section Neuraxial method: spinal Epidural/Spinal procedure site: clean & non-tender Neuro status: Neuro function grossly intact. Cardiovascular status: normal Respiratory status: normal Airway patency: baseline Mental status: baseline Post-Op hydration status: normal Vital Signs: Last Vital Signs Temp 36.6 C 10/01/21 03:30 Pulse 99 10/01/21 03:30 Resp 18 10/01/21 03:30 BP 116/77 10/01/21 03:30 Pulse Ox 100 09/30/21 15:00 Pain score (VAS): 2 I/O: Intake & Output 09/30/21 09/30/21 10/01/21 15:59 23:59 07:59 Intake Total 2050 2500 Output Total 1520 2800 Balance 530 -300 Post-procedural complaints: none Patient feedback: Patient satisfied with anesthetic care.
[2021-10-01] MEDS: HYDROcodone/acetaminophen (*CRX) 5-325 MG TABLET 1 TAB PO ×3 (07:55→17:36)
[2021-10-01] MEDS: LORATADINE 10 MG TABLET PO (07:55)
[2021-10-01] MEDS: LANOLIN (LANSINOH) 7.5 GM CREAM 1 APPLIC TOPICAL (07:56)
[2021-10-01] MEDS: SIMETHICONE 80 MG TAB.CHEW PO ×3 (07:56→17:37)
[2021-10-01] MEDS: DOCUSATE SODIUM 100 MG CAPSULE PO ×2 (07:56→17:36)
[2021-10-01] MEDS: MULTIVIT/MIN/PREN/FOL AC/IRON TABLET 1 TAB PO (07:56)
[2021-10-01 08:00] VITALS: BP 118/78; PULSE 108; RESP 18; TEMP 36.7
--- NOTE | 2021-10-01 08:35 | PC.NURSE ---
Consult with pt., mother wishes to pump due to ineffective and nipple shield. Breast pump provided due to mother's wishes. Instructions given on breast pump care and usage, pumping schedule, nipple care, and collection and storage of breast milk. Encouraged [id number], breast massage and manual expression to stimulate supply. Assessed patient for correct flange size, placement and draw. Patient verbalizes and demonstrates understanding of instructions. Discussed colostrum vs milk supply and mother may not see more than a few drops the first few days, milk should transition in by day 3 and she may see more volume pumped per session.
--- NOTE | 2021-10-01 12:57 | P.PNOB_ITS ---
OB - PN: Subj Subjective Date/time seen: 10/01/21 12:57 Patient comments: no complaints and pain well controlled baby status: doing well OB - PN: Obj Data Labs CBC & Chem 7: 10/01/21 03:32 Labs: Laboratory Results - last 24 hr 10/01/21 03:32 WBC 7.3 RBC 3.97 L Hgb 11.0 L Hct 34.7 L MCV 87.4 MCH 27.7 MCHC 31.7 L RDW 15.9 H Plt Count 155 MPV 12.7 H Immature Gran % (Auto) 0.4 Neut % (Auto) 69.0 Lymph % (Auto) 17.9 L [place] % (Auto) 11.4 H Eos % (Auto) 1.0 Baso % (Auto) 0.3 Lymph # (Auto) 1.30 [place] # (Auto) 0.8 H Eos # (Auto) 0.1 Baso # (Auto) 0.0 Abs Immat Gran (auto) 0.03 Absolute Neuts (auto) 5.0 Absolute Nucleated RBC 0.0 Nucleated RBC % 0.0 OB - PN A/P Plan day: 1 Plan: routine care and other (plans condoms for bc) Time Spent With Patient Time: Total time spent is greater than 50% in coordination of care (as documented) at patient's floor/unit and/or counseling patient: Exam Narrative: inc c/d/i : Bimanual exam- vagina & uterus: other (Uterus firm, nt @U)
--- NOTE | 2021-10-01 13:00 | PM.OBDSVD ---
DS: Admitting Diagnosis Discharge Date 10/02/21 Admitting Diagnosis IUP 39 wks Previous csection DS: Discharge Diagnosis Discharge Diagnosis (1) delivery delivered: Code(s): O82 - Encounter for delivery without indication Status: Acute OB - DS: Summary OB Procedures : Ultrasound OB Procedures Intrapartum: low cervical, transverse OB Procedures: : None Peripartum Data Infant Delivery Method: Section Procedures: Procedures Operation Date: 09/30/21 09:00 Actual Procedure Side Surgeon p Section Jose David MD Status at Discharge Functional status at discharge: independent ambulation Overall status at discharge: patient is progressing back to baseline Time Spent with Patient Time attestation: Total time spent providing and/or coordinating discharge services: DS: Data Data Completed and Pending Labs on day of discharge: Labs from last 24 hours 10/01/21 03:32 WBC 7.3 RBC 3.97 L Hgb 11.0 L Hct 34.7 L MCV 87.4 MCH 27.7 MCHC 31.7 L RDW 15.9 H Plt Count 155 MPV 12.7 H Immature Gran % (Auto) 0.4 Neut % (Auto) 69.0 Lymph % (Auto) 17.9 L [place] % (Auto) 11.4 H Eos % (Auto) 1.0 Baso % (Auto) 0.3 Lymph # (Auto) 1.30 [place] # (Auto) 0.8 H Eos # (Auto) 0.1 Baso # (Auto) 0.0 Abs Immat Gran (auto) 0.03 Absolute Neuts (auto) 5.0 Absolute Nucleated RBC 0.0 Nucleated RBC % 0.0 Discharge Plan Discharge Attending physician on discharge: Mandy Fields Discharging Clinician: Amaya Proctor Anticipated Discharge Date/Time: 10/02/21 13:01 Patient Disposition: Home, Self-Care Activity: may shower, may drive after 2 weeks and pelvic rest Diet: regular Wound Care Instructions: incision open to air Discharge Instructions: Education: Mom and Baby Guide Given to: Mother Follow-Up: Call your delivering provider's office for an appointment to be seen in: 1 Week Mom and baby [facility] the follow-up appointment. Appointment Date/Time: October 04, 2021 at 9:00 am What to expect at your follow-up visit: Blood Pressure Check Call [phone] if you are unable to keep your appointment time. BREAST CARE: * Wear a snug supportive bra. * For engorgement discomfort: Breast Feeding: * Apply warm moist washcloths * Express milk as needed to relieve engorgement * Wear loose clothing Bottle Feeding: * May apply ice packs * For sore nipples: * Identify correct latch-on * Apply warm moist washcloths before and after nursing * Air dry nipples after nursing * May apply Lansinoh cream to nipples ABDOMINAL INCISION: (if applicable) * Allow incision to air dry * Do NOT use lotions for powders on your incision * When showering, allow soap and water to run over the incision, but do not wash incision PERINEAL CARE: * Until bleeding stops, use your nany bottle after urinating * Change your pad frequently throughout the day * No tub baths until seen by your physician - You may shower ACTIVITY: * Rest as much as possible. * Do not exercise or lift anything heavier than your baby (such as laundry or other children.) * Avoid stairs or driving as much as possible. * Do not put anything into the vagina. No douching, tampons, or sexual activity until seen by physician. NOTIFY PHYSICIAN IF YOU HAVE ANY QUESTIONS OR IF ANY OF THE FOLLOWING SYMPTOMS OCCUR: * If your incision becomes red, swollen, or more painful than what you have experienced in the hospital. * If your vaginal bleeding becomes foul smelling. * If your vaginal bleeding becomes more heavy than a period or if your bleeding changes from pink to bright red. However, you may pass an occasional walnut-sized clot once or twice for the first week . * If you experience a sharp, shooting pain in y
--- NOTE | 2021-10-01 17:15 | PC.NURSE ---
Pt introductions made and plan of care discussed per post op c section, pain management, breast feeding pumping and supplementing. daily care activities. PT and fob both recipients of such instructions and verbalized understanding of such care. PT and fob both received instructions per one to one discussion, mom baby care guide and demonstrations this shift. No barriers to learning identified at this time. PT verbalized understanding of such care.
[2021-10-01 18:40] VITALS: BP 126/86; PULSE 108; RESP 18; TEMP 36.5
[2021-10-02] MEDS: IBUPROFEN 600 MG TABLET PO ×2 (01:24→08:18)
[2021-10-02] MEDS: HYDROcodone/acetaminophen (*CRX) 10-325 MG TABLET 1 TAB PO (01:24)
[2021-10-02] MEDS: SIMETHICONE 80 MG TAB.CHEW PO ×2 (01:25→08:17)
--- NOTE | 2021-10-02 07:25 | PC.NURSE ---
Pt introductions made and plan of care discussed per post op c section, pain management, breast feeding pumping and supplementing. daily care activities and pending discharge. PT and fob both recipients of such instructions. PT and fob both received instructions per one to one discussion, mom baby care guide and demonstrations this shift. No barriers to learning identified at this time. PT verbalized understanding of such care.
[2021-10-02] MEDS: MULTIVIT/MIN/PREN/FOL AC/IRON TABLET 1 TAB PO (08:17)
[2021-10-02] MEDS: DOCUSATE SODIUM 100 MG CAPSULE PO (08:17)
[2021-10-02 08:18] VITALS: BP 134/89; PULSE 120; RESP 18; TEMP 36.6; O2SAT 100
[2021-10-02] MEDS: HYDROcodone/acetaminophen (*CRX) 5-325 MG TABLET 1 TAB PO ×2 (08:18→12:15)
--- NOTE | 2021-10-02 11:06 | P.PNOB_ITS ---
OB - PN: Subj Subjective Date/time seen: 10/02/21 10:00 Narrative: POD#2 Joselyn reports doing well today. Her bleeding is transition coach. Her pain is controlled. She is tolerating regular diet, voiding, passing gas, and ambulating without issues. She is breast feeding. She denies any issues with her incision. She would like to go home today. OB - PN: Obj Data Labs CBC & Chem 7: 10/01/21 03:32 OB - PN A/P Assessment and Plan (1) delivery delivered: Code(s): O82 - Encounter for delivery without indication Status: Acute Plan day: 2 Plan: routine care and discharge home (tomorrow) Comments: - Pelvic rest; take meds as prescribed - Incision care/no heavy lifting - ER return precautions: fever, n/v/abd pain, bleeding, HTN Time Spent With Patient Time: Total time spent is greater than 50% in coordination of care (as documented) at patient's floor/unit and/or counseling patient: Review of Systems Constitutional: Constitutional: Denies chills, Denies fever(s) and Denies headache(s) Eyes: Eyes: Denies change in vision ENT: Denies dizziness and Denies headache(s) Cardiovascular: Cardiovascular: Denies chest pain, Denies palpitations and Denies dyspnea Respiratory: Respiratory: Denies cough and Denies dyspnea Gastrointestinal: Gastrointestinal: Denies nausea and Denies vomiting Neurologic: Denies dizziness and Denies headache(s) Endocrine: Endocrine: Denies palpitations Exam Const: General: cooperative, comfortable and no acute distress Orienta tion/consciousness: patient oriented x3 Resp: Effort & Inspection: normal respiratory effort Auscultation: clear to auscultation bilaterally Cardio: Rate: regular rate GI: Inspection: non-distended GI Palp: No abdominal tenderness and Yes Soft to palpation Auscultation: normal bowel sounds : Other: fundus firm, incision w/o signs of infection Skin: General skin exam: normal color Neuro: General: patient oriented x3 Extrem: General: normal to inspection Psych: Appearance: grossly normal Affect: normal affect Attitude: cooperative
--- NOTE | 2021-10-02 13:00 | PC.NURSE ---
PT received discharge instructions per protocol. Patient viewed the discharge video Mother & Baby Care, The First Two Weeks . Patient was given the opportunity and encouraged to ask questions. Patient verbalized understanding of information shared and has been given the mother/baby guide for home reference.
[2021-10-02 13:15] VITALS: BP 130/90; PULSE 109; RESP 22; TEMP 36.6; O2SAT 18
--- NOTE | 2021-10-02 14:40 | PC.NURSE ---
PT discharged to home ambulatory accompanied by fob and infant to waiting car. follow up appts confirmed
== END 2021-10-02 14:40 | disposition home or self-care (01) | DRG 787 ==
LOC: ANHOB2 10-01 13:04 → ANHLDR 10-05 08:34 → ANHOB2 10-05 08:34
PROVIDERS: Admitting Provider Obstetrics & Gynecology; Visit Provider Obstetrics & Gynecology
PROC: 10D00Z1 Extraction of Products of Conception, Low, Open Approach (ICD-10-PCS; CPT 59514; principal; 2021-09-30 09:00)
DX: O34.211 Maternal care for low transverse scar from previous cesarean delivery (principal); O10.92 Unspecified pre-existing hypertension complicating childbirth; Z37.0 Single live birth; Z3A.39 39 weeks gestation of pregnancy; O77.0 Labor and delivery complicated by meconium in amniotic fluid; O69.2XX0 Labor and delivery complicated by other cord entanglement, with compression, not applicable or unspecified; O99.344 Other mental disorders complicating childbirth; F41.9 Anxiety disorder, unspecified; O99.824 Streptococcus B carrier state complicating childbirth
CPT/HCPCS: 36415; 85025; 86592; 86850; 86900; 86901; A9270; J0131; J0690; J1200; J1885; J2270; J2274; J2300; J2370; J2405; J2590; J7120

== ENCOUNTER 2021-10-04 17:46 | Emergency (ER) | payer OTHER, MEDICAID, SELFPAY ==
[2021-10-04 17:50] VITALS: BP 155/83; PULSE 134; RESP 20; TEMP 37.1; O2SAT 100
--- NOTE | 2021-10-04 18:30 | ED.GENADULT ---
HPI - General Adult General Chief complaint: Recheck/Abnormal Lab/Rx Stated complaint: csection on , Vaginal bleeding Time Seen by Provider: 10/04/21 18:26 Source: patient and RN notes reviewed Mode of arrival: ambulatory Limitations: no limitations History of Present Illness HPI narrative: Patient is a status post section on September 30. Was sitting lactating, felt slight cramps at the lower abdomen, got up and a gush of blood came out of the vagina, 30 minutes prior to arrival to the emergency room. Currently patient is asymptomatic. Related Data Home Medications Medication Instructions Recorded Confirmed DHA 200 mg PO DAILY 04/22/21 09/30/21 ergocalciferol (vitamin D2) 1,250 mcg PO WEEKLY 04/22/21 09/30/21 Allergies Allergy/AdvReac Type Severity Reaction Status Date / Time No Known Drug Allergies Allergy Other Verified 10/04/21 18:29 Review of Systems Review of Systems: CONSTITUTIONAL: Denies fever, chills, or sweats. EYES: Denies visual changes, redness, or discharge. ENT: Denies rhinorrhea, congestion, sore throat, or otalgia. CARDIOVASCULAR: Denies chest pain, palpitations, or edema. RESPIRATORY: Denies cough or dyspnea. GASTROINTESTINAL: Denies abdominal pain, nausea, vomiting, or diarrhea. GENITOURINARY: Denies dysuria or hematuria. SKIN: Denies rash or itching. MUSCULOSKELETAL: Denies back pain, joint pain, or myalgia. NEUROLOGIC: Denies headache, numbness, or weakness. PSYCHIATRIC: Denies anxiety or depression. [facility] Past Medical History Medical History Anxiety HTN (hypertension) Surgical History Surgical History H/O: H/O: Family History Family History Sibling Diabetes type 1, controlled Diabetes type 2, uncontrolled Grandparent Diabetes type 2, uncontrolled Father Diabetes type 2, uncontrolled Social History Social History Smoking status: Never smoker Second hand tobacco smoke exposure: No Alcohol intake: never Substance use: never Gender identity (if verbalized by the patient): Female Spiritual care concerns: No Exam Narrative: General appearance: Well-developed, well-nourished Skin: Normal color Chest and respiratory: Airway patent, no respiratory distress, no accessory muscle use Heart: Regular rate/rhythm Abdomen: Soft, nontender, no organomegaly, quiet bowel sounds Vascular: Normal peripheral pulses, normal capillary refill. Musculoskeletal: Normal range of motion, nontender back Neurologic: Alert and oriented ?3, PATTERN CLEANER is normal as tested, no gross motor deficit : External Female Exam: normal external appearance and Abnormal introitus Speculum Exam - Vagina: normal appearance of the vagina and vaginal bleeding (Slight vaginal bleeding, 2 long Q-tips was enough to dry the whole vaginal ) Course Course Emergency Course: Stable Consultations Consultation #1: christine Date: 10/04/21 Time: 19:21 Vital Signs Vital signs: Vital Signs Temperature 37.1 C 10/04/21 17:50 Pulse Rate 134 H 10/04/21 17:50 Respiratory Rate 20 10/04/21 17:50 Blood Pressure 155/83 H 10/04/21 17:50 Pulse Oximetry 100 10/04/21 17:50 Temperature 37.1 C 10/04/21 17:50 Pulse Rate 134 H 10/04/21 17:50 Respiratory Rate 20 10/04/21 17:50 Blood Pressure 155/83 H 10/04/21 17:50 Pulse Oximetry 100 10/04/21 17:50 Medical Decision Making MDM Narrative Medical decision making narrative: Vaginal bleeding status post section is exp
[2021-10-04 19:15] VITALS: BP 133/82; PULSE 99; RESP 18; O2SAT 100
== END 2021-10-04 19:54 | disposition home or self-care (01) ==
PROVIDERS: Emergency Provider Emergency Medicine
DX: O72.2 Delayed and secondary postpartum hemorrhage (principal); O10.93 Unspecified pre-existing hypertension complicating the puerperium
CPT/HCPCS: 99284

== ENCOUNTER 2022-02-27 15:55 | Emergency (ER) | payer OTHER, MEDICAID, SELFPAY ==
[2022-02-27] VITALS (14 sets, daily range): BP systolic 119–156; BP diastolic 72–95; PULSE 102–144; RESP 16–28; TEMP 37.1; O2SAT 94–100
--- NOTE | ~2022-02-27 | XR_ITS ---
EXAMINATION: XR chest 2V 02/27/2022 16:32 INDICATION: Rapid heart rate. Dizziness. PROCEDURE: 2 view chest COMPARISON: No prior studies for comparison. FINDINGS: The lungs are clear. The cardiomediastinal silhouette is within normal limits. There are no pleural effusions. There is no pneumothorax suspected. IMPRESSION: 1: NO ACUTE CARDIOPULMONARY DISEASE. Reviewed, dictated and finalized at location A.
--- NOTE | 2022-02-27 16:09 | ECG_ITS ---
Measurements Intervals [place] Rate: 138 P: 37 ME: 136 QRS: 24 QRSD: 75 T: 35 QT: 292 QTc: 443 Interpretive Statements SINUS TACHYCARDIA ABNORMAL ECG Electronically Signed On 02-27-2022 20:24:04 CDT by Michael Trotter D.O.
--- NOTE | 2022-02-27 16:26 | ED.ARRPALP ---
HPI - Arrhythmia/Palpitations General Chief Complaint: Dizziness Stated Complaint: dizzy, headache Time Seen by Provider: 02/27/22 16:10 History of Present Illness HPI narrative: 32-year-old female presents here with 1 day intermittent episodes where she feels like she has chest tightness, heart racing, and she is feeling anxious and breathing quickly, and the feels like she has tingling in her hands and feet, at which point she feels like she may pass out. Denies any cough, nausea or vomiting or diarrhea, she is breast-feeding delivered about 5 months ago. Related Data Home Medications Medication Instructions Recorded Confirmed docosahexaenoic acid 200 mg 200 mg PO DAILY 04/22/21 09/30/21 capsule ( DHA) ergocalciferol (vitamin D2) 1,250 1,250 mcg PO WEEKLY 04/22/21 09/30/21 mcg (50,000 unit) capsule Allergies Allergy/AdvReac Type Severity Reaction Status Date / Time No Known Drug Allergies Allergy Other Verified 10/04/21 18:29 Review of Systems Review of Systems: CONST: No fever. HEENT: No sore throat C/V: Palpitations RESP: Some shortness of breath GI: No diarrhea : No dysuria. M/S: Tingling in bilateral hands/feet SKIN: No rash. NEURO: Lightheadedness PSYCH: [No depression] [facility] Past Medical History Medical History Anxiety HTN (hypertension) Surgical History Surgical History H/O: H/O: Family History Family History Sibling Diabetes type 1, controlled Diabetes type 2, uncontrolled Grandparent Diabetes type 2, uncontrolled Father Diabetes type 2, uncontrolled Social History Social History Smoking status: Never smoker Second hand tobacco smoke exposure: No Alcohol intake: never Substance use: never Gender identity (if verbalized by the patient): Female Spiritual care concerns: No Exam Narrative: EXAMINATION OF ORGAN SYSTEMS/BODY AREAS: Constitutional: Vital signs per nursing GENERAL: Sitting comfortably in bed HEAD: Normal with no signs of head trauma. EYES: EOMI, conjunctiva normal ENT: Hearing grossly intact LUNGS: Nonlabored breathing. HEART: Tachycardic ABD: [Soft], [nontender to palpation] EXT: Normal range of motion SKIN: [No rashes or lesions.] NEURO: [Alert and oriented x 3. No gross focal sensory or strength deficits.] PSYCH: Normal affect Course Vital Signs Vital signs: Vital Signs Temperature 98.7 F 02/27/22 16:00 Pulse Rate 122 H 02/27/22 16:00 Respiratory Rate 16 02/27/22 16:00 Blood Pressure 143/95 H 02/27/22 16:00 Pulse Oximetry 100 02/27/22 16:00 Oxygen Delivery Room Air 02/27/22 16:00 Temperature 98.7 F 02/27/22 16:00 Pulse Rate 102 H 02/27/22 19:13 Respiratory Rate 18 02/27/22 19:13 Blood Pressure 120/80 02/27/22 19:13 Pulse Oximetry 98 02/27/22 19:13 Oxygen Delivery Room Air 02/27/22 16:00 MDM - Arrhythmia/Palpitations MDM Narrative Medical decision making narrative: 32-year-old female presenting with feeling lightheadedness, chest pain, as if she is going to pass out. Vital signs show tachycardia, exam shows normal cardiopulmonary exam other than tachycardia, my differential includes anxiety attack, dehydration or infection, abnormal thyroid, PE. EKG just shows sinus tachycardia, chest x-ray normal, labs all unremarkable including D-dimer Patient is given 2 L of IV fluids and small dose of Ativan, and on reevaluation is feeling much better, she states she is no longer feeling symptomatic at this time, she is ready to go home. She is given return precautions and follow-up information with cardiology. Lab Data Result diagrams: 02/27/22 16:20 02/27/22 16:20 Labs: Lab Results 02/27/22 02/27/22 02/27/22 Range/Units 16:20 16:2
[2022-02-27 16:27] LABS: Basophils Percent Auto 0.2 % (0.2-1.2); Eosinophils Absolute Auto 0.1 K/mm3 (0-0.3); Eosinophils Percent Auto 1.3 % (0-4.4); Hemoglobin 13.7 g/dL (12.0-15.0); Immature Granulocyte Absolute 0.03 K/mm3 (0.00-0.031); Immature Granulocyte Percent A 0.4 % (0-0.5); Lymphocytes Absolute Auto 2.03 K/mm3 (0.9-3.2); Lymphocytes Percent Auto 24.3 % (18.3-44.2); Mean Corpuscular HGB Conc 31.9 g/dl (32-36); Mean Corpuscular Hemoglobin 28.3 pg (26-34); Mean Corpuscular Volume 88.8 fl (80-100); Mean Platelet Volume 10.4 fl (7.4-10.4); Monocytes Absolute Auto 0.7 K/mm3 (0.1-0.6); Monocytes Percent Auto 8.5 % (2.6-8.5); Neutrophils Absolute Auto 5.5 K/mm3 (1.3-6.7); Neutrophils Percent Auto 65.3 % (45.5-73.1); Platelet Count Result 280 k/mm3 (150-375); Red Blood Count 4.84 M/mm3 (4.2-5.4); Red Cell Distribution Width 11.8 % (11.5-14.5); White Blood Count 8.4 K/mm3 (4.5-10.0)
[2022-02-27] MEDS: LACTATED RINGERS 1,000 ML 999 ML IV CONT ×2 (16:38→18:02)
[2022-02-27] MEDS: LORazepam INJ (*CRX) 2 MG/ML VIAL 0.5 MG IV PUSH (16:38)
[2022-02-27 16:43] LABS: Alanine Aminotransferase 22 U/L (6-35); Albumin Level 4.5 g/dL (3.5-5.1); Alkaline Phosphatase 116 U/L (38-126); Anion Gap 11 mmol/L (8-16); Aspartate Amino Transferase 34 U/L (14-36); Bilirubin,Total 0.4 mg/dL (0.2-1.3); Blood Urea Nitrogen 10 mg/dL (7-17); Calcium 9.1 mg/dL (8.4-10.2); Carbon Dioxide 24 mmol/L (22-30); Chloride 104 mmol/L (98-107); Estimated CRCL calculation 80 ml/min; Estimated Glomerular Filt Rate > 60; Glucose 86 mg/dL (65-110); Potassium 3.6 mmol/L (3.4-5.0); Sodium 139 mmol/L (137-145)
[2022-02-27 16:54] LABS: Troponin I < 0.012 ng/mL (0.000-0.034)
[2022-02-27 16:58] LABS: D Dimer < 0.27 ug/mL (<0.48)
[2022-02-27 17:28] LABS: Appearance Urine Clear (Clear); Bilirubin Urine Negative (Negative); Blood Urine Negative (Negative); Color Urine Yellow (Yellow); Glucose Urine UA Negative (Negative); Ketones Urine Trace mg/dL (Negative); Leukocyte Esterase Ur Negative LEU/UL (Negative); Nitrate Urine Negative (Negative); Protein Urine Negative (Negative); Urobilinogen Urine 0.2 mg/dL (<2.0); pH Urine 6.5 (5.0-9.0)
[2022-02-27 18:15] LABS: Add Urine Microscopic? YES
[2022-02-27 18:35] LABS: Mucus Urine Rare /lpf; Squamous Epithelial Cell Urine Rare /hpf (Few); WBC Urine 0-3 /hpf
== END 2022-02-27 19:13 | disposition home or self-care (01) ==
PROVIDERS: Emergency Medicine; Emergency Provider Emergency Medicine
DX: R00.0 Tachycardia, unspecified (principal); F41.9 Anxiety disorder, unspecified; I10 Essential (primary) hypertension
CPT/HCPCS: 36415; 71046; 80053; 81001; 84443; 84484; 85025; 85380; 93005; 96361; 96374; 99284; J2060; J7120

== ENCOUNTER 2022-05-14 18:39 | Emergency (ER) | payer OTHER, MEDICAID, SELFPAY ==
--- NOTE | ~2022-05-14 | CT_ITS ---
EXAMINATION: CT BRAIN W/O DATE: 05/14/2022 19:32 INDICATION: New onset of headache. TECHNIQUE: Computed tomography (CT) of the head was performed without intravenous contrast. The dose- length product was 605.33 mGy-cm. Automated exposure control and iterative reconstruction technique w ere employed. COMPARISON: No prior studies for comparison. FINDINGS: Normal brain parenchymal volume for age. Normal ramos-white differentiation. No acute intrac ranial hemorrhage, infarction, mass or mass effect. No ventriculomegaly or midline shift. Midline sagittal images demonstrate a normal corpus callosum, c raniovertebral junction and sella turcica. Basilar cisterns are patent. Paranasal sinuses and mastoids are pneumatized. No depressed skull fractures. IMPRESSION: 1. No acute intracranial abnormality. Reviewed, dictated and finalized at location A.
[2022-05-14 18:46] VITALS: BP 135/97; PULSE 121; RESP 18; TEMP 36.6; O2SAT 100
--- NOTE | 2022-05-14 18:50 | ECG_ITS ---
Measurements Intervals [place] Rate: 108 P: 28 MI: 124 QRS: 14 QRSD: 82 T: 43 QT: 347 QTc: 466 Interpretive Statements SINUS TACHYCARDIA BORDERLINE ECG COMPARED TO ECG 02/27/2022 16:14:56 NO SIGNIFICANT CHANGES Electronically Signed On 05-15-2022 14:32:18 CDT by Dariusz Wells M.D.
[2022-05-14 19:03] LABS: Basophils Percent Auto 0.5 % (0.2-1.2); Eosinophils Absolute Auto 0.1 K/mm3 (0-0.3); Eosinophils Percent Auto 1.5 % (0-4.4); Hematocrit 42.4 % (37.0-47.0); Hemoglobin 13.4 g/dL (12.0-15.0); Immature Granulocyte Absolute 0.02 K/mm3 (0.00-0.031); Immature Granulocyte Percent A 0.2 % (0-0.5); Lymphocytes Absolute Auto 2.11 K/mm3 (0.9-3.2); Lymphocytes Percent Auto 24.7 % (18.3-44.2); Mean Corpuscular HGB Conc 31.6 g/dl (32-36); Mean Corpuscular Hemoglobin 28.3 pg (26-34); Mean Corpuscular Volume 89.6 fl (80-100); Mean Platelet Volume 10.7 fl (7.4-10.4); Monocytes Absolute Auto 0.9 K/mm3 (0.1-0.6); Monocytes Percent Auto 10.1 % (2.6-8.5); Neutrophils Absolute Auto 5.4 K/mm3 (1.3-6.7); Platelet Count Result 272 k/mm3 (150-375); Red Blood Count 4.73 M/mm3 (4.2-5.4); Red Cell Distribution Width 12.1 % (11.5-14.5); White Blood Count 8.5 K/mm3 (4.5-10.0)
[2022-05-14 19:13] LABS: Alanine Aminotransferase 16 U/L (6-35); Albumin Level 4.5 g/dL (3.5-5.1); Alkaline Phosphatase 92 U/L (38-126); Anion Gap 9 mmol/L (8-16); Aspartate Amino Transferase 23 U/L (14-36); Bilirubin,Total 0.4 mg/dL (0.2-1.3); Blood Urea Nitrogen 12 mg/dL (7-17); Calcium 9.4 mg/dL (8.4-10.2); Carbon Dioxide 28 mmol/L (22-30); Chloride 103 mmol/L (98-107); Estimated CRCL calculation 69 ml/min; Estimated Glomerular Filt Rate > 60; Glucose 104 mg/dL (65-110); Potassium 3.6 mmol/L (3.4-5.0); Sodium 140 mmol/L (137-145)
--- NOTE | 2022-05-14 19:33 | ED.DIZZY ---
HPI - Dizziness General Chief Complaint: Dizziness Stated Complaint: dizzy Time Seen by Provider: 05/14/22 18:53 History of Present Illness HPI Narrative: 32-year-old female presents emergency room accompanied by her . She states been having these episodes for the last several weeks which she has is 9 specific discomfort in her head. She states sometimes like a pain but other times it does not really feel like a pain. Associated with this she gets very nervous and anxious and can feel her heart racing. She denies any visual problems. No history of recurrent headaches in the past. Denies any numbness tingling to her arms or legs. Denies any syncopal or presyncopal episodes. She has been seen by her primary physician and felt like it was more anxiety related. Based upon her history I am suspicious for this as well. However she is really at the point where this is psychologically playing with her so bad she really needs some confirmation that there is no bad pathology going on in her brain. Related Data Home Medications Medication Instructions Recorded Confirmed docosahexaenoic acid 200 mg 200 mg PO DAILY 04/22/21 09/30/21 capsule ( DHA) ergocalciferol (vitamin D2) 1,250 1,250 mcg PO WEEKLY 04/22/21 09/30/21 mcg (50,000 unit) capsule Allergies Allergy/AdvReac Type Severity Reaction Status Date / Time No Known Drug Allergies Allergy Other Verified 05/14/22 19:36 Review of Systems Review of Systems: CONSTITUTIONAL: Denies fever, chills, or sweats. EYES: Denies visual changes, redness, or discharge. ENT: Denies rhinorrhea, congestion, sore throat, or otalgia. CARDIOVASCULAR: Denies chest pain, palpitations, or edema. RESPIRATORY: Denies cough or dyspnea. GASTROINTESTINAL: Denies abdominal pain, nausea, vomiting, or diarrhea. GENITOURINARY: Denies dysuria or hematuria. SKIN: Denies rash or itching. MUSCULOSKELETAL: Denies back pain, joint pain, or myalgia. NEUROLOGIC: Some nonspecific discomfort in her head as noted in HPI. No numbness or weakness. PSYCHIATRIC: Denies anxiety or depression. [facility] Past Medical History Medical History Anxiety HTN (hypertension) Surgical History Surgical History H/O: H/O: Family History Family History Sibling Diabetes type 1, controlled Diabetes type 2, uncontrolled Grandparent Diabetes type 2, uncontrolled Father Diabetes type 2, uncontrolled Social History Social History Smoking status: Never smoker Second hand tobacco smoke exposure: No Alcohol intake: never Substance use: never Gender identity (if verbalized by the patient): Female Spiritual care concerns: No Exam Narrative: APPEARANCE: Well appearing, no pain or distress, well-nourished. Head Normocephalic and atraumatic. EYES: PERRLA/EOMI, conjunctivae clear. NOSE: Normal with no drainage EARS:TMS clear with Bosch, with good light reflex. THROAT: Pharynx clear, no exudate. NECK: Supple. No adenopathy, no masses. RESPIRATORY: Airway patent, respirations nonlabored. Clear to auscultation bilaterally, no rales, rhonchi, wheezing. CARDIOVASCULAR: Regular rate and rhythm without murmurs, rubs, or gallops. ABDOMINAL: Soft, nontender, nondistended, no hepatosplenomegaly Musculoskeletal: Moves all extremities. Strength/ROM intact, No edema, No calf tenderness. NEURO: Alert. Cranial nerves II through XII intact. Normal gait. Good coordination. Nonfocal examination. SKIN:: Warm, dry. Normal Color PSYCHIATRIC: Normal affect/mood, normal interaction Course Vital Signs Vital signs: Vital Signs Temperature 97.8 F 05/14/22 18:46 Pulse Rate 121 H 05/14/22 18:46 Respiratory Rate 18 05/14/22 18:46 Blood Pressure 135/97 H 05/14/22 18:46 Pulse Oxi
[2022-05-14 20:06] VITALS: BP 123/82; PULSE 96; RESP 16; O2SAT 100
== END 2022-05-14 20:07 | disposition home or self-care (01) ==
PROVIDERS: Emergency Medicine; Emergency Provider Emergency Medicine
DX: F41.9 Anxiety disorder, unspecified (principal); I10 Essential (primary) hypertension; R00.0 Tachycardia, unspecified
CPT/HCPCS: 36415; 70450; 80053; 81025; 85025; 93005; 99284

== ENCOUNTER 2023-01-04 15:39 | Emergency (ER) | payer OTHER, MEDICAID, SELFPAY ==
--- NOTE | 2023-01-04 16:01 | ED.ALLEREA ---
HPI - Allergic Reaction General Chief complaint: Allergic Reaction Stated complaint: hives Time Seen by Provider: 01/04/23 15:41 Source: patient and RN notes reviewed Mode of arrival: ambulatory Limitations: no limitations History of Present Illness HPI narrative: This is a 32 year old female who presents for evaluation of a rash. She reports for the past 3 days she has developed hives. She thinks it is due to her anxiety. She denies any new exposures. She took 25 mg benadryl 3 hours ago. She denies throat swelling, difficulty breathing or chest pain. She came to see what is causing her hives. Related Data Home Medications Medication Instructions Recorded Confirmed docosahexaenoic acid 200 mg 200 mg PO DAILY 04/22/21 09/30/21 capsule ( DHA) ergocalciferol (vitamin D2) 1,250 1,250 mcg PO WEEKLY 04/22/21 09/30/21 mcg (50,000 unit) capsule Allergies Allergy/AdvReac Type Severity Reaction Status Date / Time No Known Drug Allergies Allergy Other Verified 05/14/22 19:36 Review of Systems Constitutional: Constitutional: Denies weakness Cardiovascular: Cardiovascular: Denies syncope, Denies rapid heart rate, Denies irregular heart rhythm, Denies leg edema and Denies dyspnea Respiratory: Respiratory: Denies chest congestion, Denies hemoptysis, Denies excessive phlegm production and Denies dyspnea Gastrointestinal: Gastrointestinal: Denies abdominal pain, Denies hematochezia, Denies diarrhea and Denies vomiting Genitourinary: Genitourinary: Denies hematuria and Denies dysuria Musculoskeletal: Musculoskeletal: Denies joint swelling, Denies loss of height and Denies muscle weakness Integumentary/Breasts: Skin/Breast: Reports pruritus and Reports rash Neurologic: Denies syncope, Denies focal weakness and Denies weakness Psychiatric: Psychiatric: Reports anxiety Allergic/Immunologic: Allergic/Immunologic: Denies throat swelling, Denies tongue swelling and Denies wheezing PMFSH Past Medical History Medical History Anxiety HTN (hypertension) Surgical History Surgical History H/O: H/O: Family History Family History Sibling Diabetes type 1, controlled Diabetes type 2, uncontrolled Grandparent Diabetes type 2, uncontrolled Father Diabetes type 2, uncontrolled Social History Social History Smoking status: Never smoker Second hand tobacco smoke exposure: No Alcohol intake: never Substance use: never Living arrangements: with family Gender identity (if verbalized by the patient): Female Spiritual care concerns: No Exam Const: General: no acute distress and alert Nutritional Appearance: well nourished Orientation/consciousness: patient oriented x3 HENMT: Head: normal to inspection Mouth: Yes Normal oral and palatal mucosa present, Yes lip normal and Yes moist mucous membranes Throat: posterior oropharynx normal and uvula midline Eyes: EOM: EOMs intact bilaterally Chest: Chest palpation & inspection: normal inspection of the chest Resp: Effort & Inspection: normal respiratory effort Auscultation: clear to auscultation bilaterally Cardio: Rate: regular rate Rhythm: regular rhythm Heart sounds: no murmurs GI: GI Palp: Yes Soft to palpation, No Tenderness to palpation present (GI), No Guarding due to palpation present (GI) and No Rigid due to palpation Auscultation: normal bowel sounds Skin: General skin exam: normal color Wounds: no wounds Other: hives to arms, face Neuro: General: patient oriented x3, moves all extremities and CN's II-XI intact bilaterally Psych: Mental Status: mental status grossly normal Affect: normal affect Attitude: cooperative Course Reevaluation(s) Reevaluation #1: PAtient states rash is res
[2023-01-04 16:10] VITALS: BP 138/96; PULSE 102; RESP 16; TEMP 36.4; O2SAT 99
[2023-01-04] MEDS: FAMOTIDINE 20 MG TABLET PO (16:16)
[2023-01-04] MEDS: diphenhydrAMINE HCl CAP 25 MG CAPSULE PO (16:16)
[2023-01-04] MEDS: predniSONE 20 MG TABLET 60 MG PO (16:16)
== END 2023-01-04 17:32 | disposition home or self-care (01) ==
PROVIDERS: Emergency Provider General Practice; PCP Nurse Practitioner Family
DX: L50.9 Urticaria, unspecified (principal); I10 Essential (primary) hypertension
CPT/HCPCS: 99283; A9270; J7512

== ENCOUNTER 2023-12-01 09:25 | Emergency (ER) | payer OTHER, SELFPAY ==
--- NOTE | 2023-12-01 09:31 | ED.UPPEXIN ---
HPI - Extremity Injury (Upper) General Chief Complaint: Extremity Injury, Upper Stated Complaint: Under arm pain Time Seen by Provider: 12/01/23 09:30 Source: patient Mode of arrival: ambulatory Limitations: no limitations History of Present Illness HPI narrative: Joselyn is a 33-year-old female patient presenting to the ER today with complaints of a boil under her right axilla. She reports that this been going on for a few days. Denies any fever chills. Is having or significant pain this morning that has prompted her to the emergency room. States she has had a history of this before in this axilla but it drained on its own. States she has only started getting boils since she has gained weight. Denies any fever, chills, body aches. Related Data Allergies Allergy/AdvReac Type Severity Reaction Status Date / Time No Known Allergies Allergy Verified 12/01/23 09:52 Review of Systems Review of Systems: Pertinent positives per HPI. Patient denies any fever, chills, rash, headache, visual changes, dizziness, cough, runny nose, sore throat, shortness of breath, chest pain, palpitations, nausea, vomiting, diarrhea, constipation, abdominal pain, or any urinary issues. PMFSH Comments At the time of my signature, I reviewed and agree with the nursing past medical, surgical, social, and family history. There is no relevant family history pertinent to the patient complaint. Exam Narrative: General: Well-developed, well nourished, in no apparent distress Head: Normocephalic, atraumatic. Cardio: Regular rate and rhythm, s1 and s2 normal, no murmur appreciated. Resp: Clear to auscultation bilaterally, no rhonchi, rales, wheezing or rubs. Integumentary: [place], warm, and dry, intact without lesion, fluctuant abscess palpable to the right superior axilla fold, tenderness to palpation with mild erythema, induration measuring approximately 3.5 cm by 2 cm. No drainage at this time Course Course Emergency Course: Portions of this record may have been created with voice recognition software. Vital Signs Vital signs: Vital Signs Temperature 36.6 C 12/01/23 09:34 Pulse Rate 112 H 12/01/23 09:34 Respiratory Rate 16 12/01/23 09:34 Blood Pressure 148/77 H 12/01/23 09:34 Pulse Oximetry 99 12/01/23 09:34 Oxygen Delivery Room Air 12/01/23 09:34 Temperature 36.6 C 12/01/23 09:34 Pulse Rate 112 H 12/01/23 09:34 Respiratory Rate 16 12/01/23 09:34 Blood Pressure 148/77 H 12/01/23 09:34 Pulse Oximetry 99 12/01/23 09:34 Oxygen Delivery Room Air 12/01/23 09:34 Vital signs reviewed Procedures Abscess I/D right axilla: Date of Incision: 12/01/23 Side (if applicable): right Sedation/analgesia: none Local Anesthetic: lidocaine 1% and with epi Amount of anesthesia used (mL): 2 Technique: incised with #11 blade and probed loculations Amount of fluid expressed (mL): 5 Irrigation: No Packing used?: iodoform (Quarter-inch) I&D Results: Pus and Blood Complications: other (None) Abcess I&D Additional Comments: Verbal consent obtained for incision and drainage. Risk and benefits explained and patient voiced understanding. Area was cleansed with alcohol. Area was prepped and draped using sterile technique. 27 gauge needle was then used to instill (2) ml of lidocaine with epi into the wound edges. Patient tolerated well and anesthesia was appropriate. An 11 blade scalpel was then used to make a 0.5cm incision over the abscess. White bloody exudate expressed from cavity. Wound culture obtained and sent to lab. Patient tolerated procedure well. MDM - Extremity Injury (Upper) MDM Narrative Medical decision making narrative: At the time of visit patient is resting comfortably on the exam table. Patient appears to be nontoxic. Procedures: Incision and drainage performed of the right superior axilla fold. Plan: I suspect patient has
[2023-12-01 09:34] VITALS: BP 148/77; PULSE 112; RESP 16; TEMP 36.6; O2SAT 99
[2023-12-01] MEDS: LIDO 1%/EPINEPHRINE 1:100,000 20 ML VIAL (10:02)
== END 2023-12-01 10:14 | disposition home or self-care (01) ==
LOC: ANHED 10:09
PROVIDERS: Emergency Provider Nurse Practitioner Family; PCP Nurse Practitioner Family
DX: L02.411 Cutaneous abscess of right axilla (principal)
CPT/HCPCS: 10061; 87070; 87075; 87076; 87205; 99283

== ENCOUNTER 2025-04-30 10:47 | Emergency (ER) | payer OTHER, SELFPAY ==
--- NOTE | ~2025-04-30 | XR_ITS ---
EXAMINATION: XR chest 2V DATE: 04/30/2025 12:14 INDICATION: Chest pain TECHNIQUE: PA and lateral views of the chest were obtained. COMPARISON: Chest radiograph dated 02/27/2022 FINDINGS: The lungs are clear with no focal airspace opacities, pulmonary edema, pleural effusion or pneumothor ax. The cardiomediastinal silhouette is normal. Visualized bones and soft tissues are unremarkable. IMPRESSION: 1. No acute cardiopulmonary disease. Reviewed, dictated and finalized at location A.
[2025-04-30 10:49] VITALS: BP 134/87; PULSE 143; RESP 18; TEMP 36.7; O2SAT 100
--- NOTE | 2025-04-30 11:01 | PC.NURSE ---
Pt. reports L. shoulder pain for 2.5 weeks. Denies any injury or trauma to extremity. Pain is worse in the morning when she wakes up and is relieved by raising her L. arm over her head. Upon inspection, no deformity or wound. No bruising. Pt. has full ROM. Pt. is tachycardic at 126. Pt. states It's because I'm nervous. I've had a lot of anxiety since birthing my 2nd child. Pt. gave to his 2nd child in 2020.
[2025-04-30 11:04] VITALS: BP 144/99; PULSE 123; RESP 16; O2SAT 100
--- OUTSIDE RECORDS SUMMARY | 2025-04-30 11:15 | XMS_ITS | Clinical Summary ---
Author Organization [facility] Address [address] [place] [address] Care Team Providers Care Loan Servicing Representative Name Role Phone No, Physician Primary Care Provider Allergies No known active allergies Medications phentermine (ADIPEX-P) 37.5 mg tablet 0 0 Active fluocinonide (LIDEX) 0.05 % external solutionIndicat ions:Psoriasis vulgaris Apply topically 2 (two) times a day as needed for rash 180 mL 3 0 Active Active Problems No known active problems Social History Tobacco Use Types Packs/Day Years Used Date Smoking Tobacco: Never Assessed Comments Unknown Sex and Gender Information Value Date Recorded Sex Assigned at Not on file Legal Sex Female 8:59 PM UX RESEARCHER Gender Identity Female 06/18/2020 11:28 AM CDT Sexual Orientation Not on file Obstetrics History Plan of Treatment Not on file Insurance [facility] CHOICE PLUS [facility] [employer] Care Teams Loan Servicing Representative Relationship Specialty Start Date End Date No, Physician PCP - General 06/18/20
--- OUTSIDE RECORDS SUMMARY | 2025-04-30 11:15 | XMS_ITS | Referral Summary ---
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
--- OUTSIDE RECORDS SUMMARY | 2025-04-30 11:15 | XMS_ITS | Clinical Summary ---
Author Organization [facility] Address [address] [place] [address] Care Team Providers Care Marine Diesel Mechanic Name Role Phone Unavailable Primary Care Provider Unavailabl e Source Comments [facility],non-owned Affiliates and Associated Physician Practices is amultiple site organization consisting of ambulatory clinics and hospital sitesin [place], [place], [place] and [place]. This disclosure is being madepursuant to the Care Everywhere program and may not contain all information available regarding this patient. Last updated 18.[employer] [facility] Allergies No known active allergies Medications * Be aware that medications may not be up to date on this document. Alwaysverify current medications with the patient. 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 CONSULTANT Gender Identity Not on file Sexual Orientation Not on file Last Filed Vital Signs Vital Sign Reading Time Taken Comments Blood Pressure 126/76 07/25/2018 4:28 PM CDT Pulse 115 07/25/2018 4:28 PM CDT Temperature 37.2 C (99 F) 07/25/2018 4:28 PM CDT Respiratory Rate 14 07/25/2018 4:28 PM CDT Oxygen Saturation 99% 07/25/2018 4:28 PM CDT Inhaled Oxygen Concentration - - Weight 99.8 kg (220 lb) 07/25/2018 4:28 PM CDT Height 154.9 cm (5' 1) 07/25/2018 4:28 PM CDT Body Mass Index 41.57 07/25/2018 4:28 PM CDT Plan of Treatment Health Maintenance Due Date Last Done Comments HIV SCREENING 02/12/2007 HEPATITIS C SCREENING 02/08/2010 HEPATITIS B VACCINE (1 of 3 - 19+ 3-dose series) 02/12/2011 HPV VACCINE (1 - 3-dose SCDM series) 02/12/2019 COVID-19 VACCINE (1 - 2023-2 5 season) 2024 DEPRESSION SCREENING 10/02/2024 INFLUENZA VACCINE (#1) 2025 DTAP/TDAP/TD VACCINES (2 - T d or Tdap) 02/15/2029 02/15/2019 ZOSTER VACCINE (1 of 2) 02/12/2042 HIB VACCINE Aged Out No longer eligi ble based on patient's age to complete this topic MENINGOCOCCAL (Group B) VACC INE SHARED DECISION-MAKING Aged Out No longer eligibl e based on patient's age to complete this topic MENINGOCOCCAL GROUPS A/C/Y/W VACCINE Aged Out No longer eligible b ased on patient's age to complete this topic PNEUMOCOCCAL VACCINE Aged Out No long er eligible based on patient's age to complete this topic Insurance
--- OUTSIDE RECORDS SUMMARY | 2025-04-30 11:15 | XMS_ITS | Clinical Summary ---
Author Organization [facility] Address [facility] [place] [address] Care Team Providers Care Motel Keeper Name Role Phone BrianSahara palomares PROSPER Primary Care Provider [phone] Allergies No known active allergies Medications ibuprofen (MOTRIN) 600 MG tabletIndicatio ns:Strain of right foot, initial encounter Take 1 tablet (600 mg total) by mouth every 8 (eight) hours as needed for Pain. 30 tablet Active Additional Information Patient not taking.Reported on 2024 Active Problems Problem Noted Date Diagnosed Date Anxiety 04/05/2022 Immunizations Immunization Administration Dates Next Due Tdap (Generic) 02/15/2019 Family History Medical History Relation Comments Diabetes Brother type 1 None Father None Mother Relation Status Comments Brother Father Alive Mother Alive Social History Tobacco Use Types Packs/Day Years Used Date Smoking Tobacco: Never Passive Smoke Exposure: Never Smokeless Tobacco: Never Tobacco Cessation:Counseling Given: No Alcohol Use Standard Drinks/Week Comments No 0 (1 standard drink = 0.6 oz pur e alcohol) PHQ-2 Answer Date Recorded Patient Health Questionnaire-2 Score 0 01/04/2024 Comments No Sex and Gender Information Value Date Recorded Sex Assigned at Female 12/04/2023 8:16 AM INFANT AND TODDLER TEACHER Legal Sex Female 11:42 AM INFANT AND TODDLER TEACHER Gender Identity Female 12/04/2023 8:16 AM INFANT AND TODDLER TEACHER Sexual Orientation Straight 12/04/2023 8: 16 AM INFANT AND TODDLER TEACHER Last Filed Vital Signs Vital Sign Reading Time Taken Comments Blood Pressure 137/87 2024 1:33 PM CDT Pulse 100 2024 1:33 PM CDT Temperature 36.1 C (97 F) 12/04/2023 12:03 PM INFANT AND TODDLER TEACHER Respiratory Rate 18 12/04/2023 12:03 PM INFANT AND TODDLER TEACHER Oxygen Saturation 98% 2024 1:33 PM CDT Inhaled Oxygen Concentration - - Weight 101.2 kg (223 lb) 2024 1:33 PM CDT Height 153.7 cm (5' 0.5) 12/04/2023 12:03 PM CS T Body Mass Index 42.83 12/04/2023 12:03 PM INFANT AND TODDLER TEACHER Plan of Treatment Health Maintenance Due Date Last Done Comments Cervical Cancer Screening Pa p Smear (Age 30 to 64) Every 3 Years 1992 Hepatitis C 02/12/2010 Hepatitis B Vaccines (1 of 3 - 19+ 3-dose series) 02/12/2011 HPV Vaccines (1 - 3-dose SCD M series) 02/12/2019 Cervical Cancer Screening Pa p with HPV Testing (Age 30 to 64) Every 5 Years 02/12/2022 Cervical Cancer Screening wi th HPV 02/12/2022 Annual Physical 04/25/2023 04/25/2022, 12/05/2019 COVID-19 Vaccine (1 - 2023-2 5 season) 2024 PHQ-2 (Physician [place]) 10/02/2024 01/04/2024 DTaP, Tdap and Td Vaccines ( 2 - Td or Tdap) 02/15/2029 02/15/2019 Meningococcal B Vaccine Aged Out No l onger eligible based on patient's age to complete this topic Meningococcal Vaccine Aged Out No kaden khloe eligible based on patient's age to complete this topic Pneumococcal Vaccine: Pediatrics (0 to 5 Years) and At-Risk Patients (6 to 49 Years) Aged Out No longer eligible b ased on patient's age to complete this topic RSV Immunizations Under 20 Months Aged Out No longer eligible b ased on patient's age to complete this topic Insurance [employer] Care Teams Motel Keeper Relationship Specialty Start Date End Date [place] [address] PCP - General NURSE PRACTITIONER 02/29/24
--- NOTE | 2025-04-30 11:22 | ECG_ITS ---
Test Date: 2025-04-30 11:57:11 Measurements Intervals [place] Rate: 124 P: 38 OK: 148 QRS: 16 QRSD: 73 T: 25 QT: 305 QTc: 439 Interpretive Statements SINUS TACHYCARDIA No previous ECG available for comparison Electronically Signed On 04-30-2025 13:11:02 CDT by George Keyes D.O
--- NOTE | 2025-04-30 11:36 | ED_ITS ---
HPI - General Adult General Chief complaint: Extremity Injury, Upper Stated complaint: shoulder pain Time Seen by Provider: 04/30/25 11:03 History of Present Illness HPI narrative: 35-year-old female presents with left shoulder tightness and heaviness. Patient states symptoms have been on and off for weeks. Patient states they are worse in the morning. Patient states she has no medical problems. Patient has had intermittent chest palpitations. Patient has no other medical problems Patient states to the RN that the patient has been having diarrhea more frequently for the past 3months since starting weight loss injections. Onset (ago): week(s) (Three) Related Data Home Medications ?Medication ?Instructions ?Recorded ?Confirmed ?Last Taken ?Type docosahexaenoic acid 200 mg 200 mg PO DAILY 04/22/21 09/30/21 09/29/21 History capsule ( DHA) ergocalciferol (vitamin D2) 1,250 1,250 mcg PO WEEKLY 04/22/21 09/30/21 09/29/21 History mcg (50,000 unit) capsule Allergies Allergy/AdvReac Type Severity Reaction Status Date / Time No Known Drug Allergies Allergy Other Verified 04/30/25 11:04 Review of Systems 2 Review of Systems: A 10 system review of systems was completed on the patient and is negative except for what is stated in the HPI. Nursing and ancillary documentation was reviewed. ON LICENSE OF [facility] Past Medical History Medical History (Updated 04/30/25 @ 13:42 by Romel Page APRN) Anxiety HTN (hypertension) Surgical History Surgical History (Updated 12/01/23 @ 12:30 by Lucy Lau) H/O: H/O: Family History Family History (System 12/01/23 @ 12:30 by Lucy Lau) Sibling Diabetes type 1, controlled Diabetes type 2, uncontrolled Grandparent Diabetes type 2, uncontrolled Father Diabetes type 2, uncontrolled Social History Social History (System 12/01/23 @ 12:30 by Lucy Lau) Smoking status: Never smoker Second hand tobacco smoke exposure: No Alcohol intake: never Substance use: never Living arrangements: with family Gender identity (if verbalized by the patient): Female Spiritual care concerns: No Exam 2 Narrative: GENERAL: Well-appearing, well-nourished, and in no acute distress. HEAD: Normocephalic, atraumatic. EYES: PERRLA and EOMI. ENT: Nares clear, no rhinorrhea or epistaxis. Mucous membranes moist. NECK: Supple. CHEST: Clear to auscultation. No respiratory distress. HEART: Tachycardia, regular ABDOMEN: Soft, nontender, nondistended, normal active bowel sounds. EXTREMITIES: Normal range of motion. No edema. SKIN: Warm, dry, no rash. NEURO: No focal deficits. Alert and oriented x3. PSYCH: Normal mood but appears anxious Course Course Emergency Course: Patient is tachycardic in the 120s. Will rule out PE, thyroid dysfunction, electrolyte abnormalities, ACS Reevaluation(s) Reevaluation #1: Patient feeling less anxious and better after fluids Date: 04/30/25 Time: 13:37 Vital Signs Vital signs: Vital Signs Temperature 36.7 C 04/30/25 10:49 Pulse Rate 143 H 04/30/25 10:49 Respiratory Rate 18 04/30/25 10:49 Blood Pressure 134/87 04/30/25 10:49 Pulse Oximetry 100 04/30/25 10:49 Oxygen Delivery Room Air 04/30/25 10:49 Temperature 36.7 C 04/30/25 10:49 Pulse Rate 109 H 04/30/25 13:12 Respiratory Rate 20 04/30/25 13:12 Blood Pressure 133/100 H 04/30/25 13:12 Pulse Oximetry 100 04/30/25 13:12 Oxygen Delivery Room Air 04/30/25 10:49 Medical Decision Making MDM Narrative Medical decision making narrative: Labs and chest x-ray ordered to rule out life-threatening issues related to tachycardia and anxiety Differential Diagnosis Differential Diagnosis: PE vs thyroid dysfunction vs electrolyte abnormality vs anxiety Vital Signs Vital Signs: Vital Signs Temperature 36.7 C 04/30/25 10:49 Pulse Rate 143 H 04/30/25 10:49 Respiratory Rate 18 04/30/25 10:49 Blood Pressure 134/87 04/30/25 10:49 Pulse Oximetry 100 04/30/25 10:49 Oxygen Delivery Room Air 04/30/25 10:49 Temperature 36.7 C 04/30/25 10:49 Pulse Rate 109 H 04/30/25 13:12 Respiratory Rate 20 04/30/25 13:12 Blood Pressure 133/100 H 04/30/25 13:12 Pulse Oximetry 100 04/30/25 13:12 Oxygen Delivery Room Air 04/30/25 10:49 Lab Data Lab results reviewed: Yes I reviewed the patient's lab results. Lab results narrative: patient is on her menstrual cycle 04/30/25 11:42 04/30/25 11:42 Labs: Lab Results 04/30/25 04/30/25 04/30/25 Range/Units 11:42 12:00 12:32 WBC 6.1 (4.5-10.0) K/mm3 RBC 4.73 (4.2-5.4) M/mm3 Hgb 13.0 (12.0-15.0) g/dL Hct 40.7 (37.0-47.0) % MCV 86.0 (80-100) fl MCH 27.5 (26-34) pg MCHC 31.9 L (32-36) g/dl RDW 12.8 (11.5-14.5) % Plt Count 253 (150-375) k/mm3 MPV 10.8 H (7.4-10.4) fl Immature Gran % (Auto) 0.3 (0-0.5) % Neut % (Auto) 58.7 (45.5-73.1) % Lymph % (Auto) 24.8 (18.3-44.2) % [place] % (Auto) 12.2 H (2.6-8.5) % Eos % (Auto) 3.5 (0-4.4) % Baso % (Auto) 0.5 (0.2-1.2) % Lymph # (Auto) 1.50 (0.9-3.2) K/mm3 [place] # (Auto) 0.7 H (0.1-0.6) K/mm3 Eos # (Auto) 0.2 (0-0.3) K/mm3 Baso # (Auto) 0.0 (0.0-0.1) K/mm3 Abs Immat Gran (auto) 0.02 (0.00-0.031) K/mm3 Absolute Neuts (auto) 3.6 (1.3-6.7) K/mm3 Absolute Nucleated RBC 0.000 (0.0-0.012) K/mm3 Nucleated RBC % 0.0 (0.0-0.2) % D-Dimer 0.42 (<0.48) ug/mL Sodium 133 L (137-145) mmol/L Potassium 3.5 (3.4-5.0) mmol/L Chloride 102 (98-107) mmol/L Carbon Dioxide 23 (22-30) mmol/L Anion Gap 8 (4-12) mmol/L BUN 5 L D (7-17) mg/dL Creatinine 1.02 H (0.7-1.0) mg/dL Estim Creat Clear Calc 71 ml/min Estimated GFR > 60 (59 - ) Glucose 92 (65-110) mg/dL Calcium 8.8 (8.4-10.2) mg/dL Total Bilirubin 0.6 (0.2-1.3) mg/dL AST 33 (14-36) U/L ALT 19 (6-35) U/L Alkaline Phosphatase 73 (38-126) U/L Troponin I < 0.012 (0.000-0.034) ng/mL NT-Pro-B Natriuret Pep 31 (19.9-100) pg/mL Total Protein 8.1 (6.3-8.2) g/dL Albumin 4.1 (3.5-5.1) g/dL Lipase 77 (23-300) U/L TSH (Reflex) 2.860 (0.465-4.68) uIU/mL Urine Color Yellow (Yellow) Urine Appearance Clear (Clear) Urine pH 7.0 (5.0-9.0) Ur Specific [place] 1.005 (1.001-1.035) Urine Protein Negative (Negative) mg/dL Urine Glucose (UA) Negative (Negative) mg/dL Urine Ketones Negative (Negative) mg/dL Ur Blood (Man) 2+ H (Negative) Urine Nitrate Negative (Negative) Urine Bilirubin Negative (Negative) Urine Urobilinogen 0.2 (<2.0) mg/dL Leukocyte Esterase Rfl Negative (Negative) DENISSE/UL Urine RBC 6-10 H (0-2) /hpf Urine WBC 0-5 (0-3) /hpf Ur Squamous Epith Cells None seen (Few) /hpf Urine Bacteria None seen /hpf Urine Casts 0-2 POC Urine HCG, Qual Negative (Negative) Urine Opiates Screen Negative (Negative) Urine Methadone Screen Negative (Negative) Ur Barbiturates Screen Negative (Negative) Ur Phencyclidine Scrn Negative (Negative) Ur Amphetamine Screen Negative (Negative) U Benzodiazepines Scrn Negative (Negative) Urine Cocaine Screen Negative (Negative) U Cannabinoids Screen Negative (Negative) ECG Data EKG #1: Interpretation: sinus tachycardia at 126 EKG Interpretation: tachycardia Discharge Plan Discharge Clinical Impression: Left shoulder pain, Anxiety, Tachycardia Patient Disposition: Home Condition: Improved Instructions: Antibiotic Form, Anxiety (ED) Additional Instructions: Follow-up primary care doctor Return for any worsening symptoms Patient Language: Gabonese Prescriptions: No Action famotidine [Pepcid] 20 mg tablet 20 mg PO BID Qty: 14 0RF prednisone 50 mg tablet 50 mg PO DAILY Qty: 5 0RF cetirizine [Zyrtec] 10 mg tablet 10 mg PO DAILY Qty: 14 0RF ergocalciferol (vitamin D2) 1,250 mcg (50,000 unit) capsule 1,250 mcg PO WEEKLY Rx Instructions: on mondays DHA 200 mg capsule 200 mg PO DAILY hydrocodone-acetaminophen 5-325 mg Tablet 1 tablet PO Q3H PRN (Reason: Moderate Pain (4-6)) Qty: 30 0RF docusate sodium 100 mg Capsule 100 mg PO BID 20 Days Qty: 40 0RF ibuprofen 600 mg Tablet 600 mg PO Q6H PRN (Reason: Cramping) 10 Days Qty: 40 0RF clindamycin HCl 300 mg capsule 300 mg PO Q6H 10 Days Qty: 40 0RF hydrocodone-acetaminophen 5-325 mg tablet 1 tablet PO Q6H PRN (Reason: pain) 3 Days Qty: 12 0RF Follow-up/Referrals: Di,Ana Maria Ya APRN [Primary Care Provider] - 05/01/25 Time of Disposition: 13:41
--- OUTSIDE RECORDS SUMMARY | 2025-04-30 11:36 | XMS_ITS | Clinical Summary ---
Author Organization 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
--- OUTSIDE RECORDS SUMMARY | 2025-04-30 11:36 | XMS_ITS | Clinical Summary ---
Author Organization [facility] Address [facility] [place] [address] Care Team Providers Care Product Analyst Name Role Phone BrianSahara palomares PROSPER Primary Care Provider [phone] Allergies No known active allergies Medications ibuprofen [...] Sex Assigned at Female 12/04/2023 8:16 AM ROD PULLER Legal Sex Female 11:42 AM ROD PULLER Gender Identity Female 12/04/2023 8:16 AM ROD PULLER Sexual Orientation Straight 12/04/2023 8: 16 AM ROD PULLER Last Filed Vital Signs Vital Sign Reading Time Taken Comments Blood Pressure 137/87 2024 1:33 PM CDT Pulse 100 2024 1:33 PM CDT Temperature 36.1 C (97 F) 12/04/2023 12:03 PM ROD PULLER Respiratory Rate 18 12/04/2023 12:03 PM ROD PULLER Oxygen Saturation 98% 2024 1:33 PM CDT Inhaled Oxygen Concentration - - Weight 101.2 kg (223 lb) 2024 1:33 PM CDT Height 153.7 cm (5' 0.5) 12/04/2023 12:03 PM CS T Body Mass Index 42.83 12/04/2023 12:03 PM ROD PULLER Plan of Treatment Health Maintenance Due Date [...] - 2023-2 5 season) 2024 PHQ-2 (Physician [place]') 10/02/2024 01/04/2024 DTaP, Tdap and Td Vaccines [...] complete this topic Insurance [employer] Care Teams Product Analyst Relationship Specialty Start Date End Date [place] [address] [address] PCP - General NURSE PRACTITIONER 02/29/24
--- OUTSIDE RECORDS SUMMARY | 2025-04-30 11:36 | XMS_ITS | Clinical Summary ---
Author Organization [facility] [employer] Address [address] [place] [address] Care Team Providers Care Call Or Contact Centre Team Leader Name Role Phone Unavailable Primary Care Provider Unavailabl e Source Comments [facility] [employer],non-owned Affiliates and Associated Physician Practices is amultiple site organization consisting of ambulatory clinics and hospital sitesin [place], [place], [place] and [place]. This disclosure is being madepursuant to the Care Everywhere program and may not contain all information available regarding this patient. Last updated 18.[employer] Allergies No known active allergies Medications * [...] on file Legal Sex Female 5:41 AM NURSES' ASSOCIATION EXECUTIVE DIRECTOR Gender Identity Not on file Sexual Orientation [...]
--- OUTSIDE RECORDS SUMMARY | 2025-04-30 11:36 | XMS_ITS | Referral Summary ---
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
--- NOTE | 2025-04-30 11:38 | PC.NURSE ---
Pt. able to ambulate to bathroom independently with no issues.
[2025-04-30 11:52] LABS: Hematocrit 40.7 % (37.0-47.0); Hemoglobin 13.0 g/dL (12.0-15.0); Immature Granulocyte Percent A 0.3 % (0-0.5); Lymphocytes Absolute Auto 1.50 K/mm3 (0.9-3.2); Mean Corpuscular HGB Conc 31.9 g/dl (32-36); Mean Corpuscular Hemoglobin 27.5 pg (26-34); Mean Corpuscular Volume 86.0 fl (80-100); Nucleated Red Blood Cells Absolute Auto 0.000 K/mm3 (0.0-0.012); Nucleated Red Blood Cells Perc 0.0 % (0.0-0.2); Platelet Count Result 253 k/mm3 (150-375); Red Blood Count 4.73 M/mm3 (4.2-5.4); White Blood Count 6.1 K/mm3 (4.5-10.0)
[2025-04-30 12:03] LABS: BEDSIDEPREGUCG Negative (Negative)
--- NOTE | 2025-04-30 12:05 | PC.NURSE ---
Pt. at imaging.
[2025-04-30 12:10] LABS: Cannabinoid Screen Urine Negative (Negative)
[2025-04-30 12:16] LABS: Alanine Aminotransferase 19 U/L (6-35); Albumin Level 4.1 g/dL (3.5-5.1); Alkaline Phosphatase 73 U/L (38-126); Anion Gap 8 mmol/L (4-12); Aspartate Amino Transferase 33 U/L (14-36); Bilirubin,Total 0.6 mg/dL (0.2-1.3); Blood Urea Nitrogen 5 mg/dL (7-17); Calcium 8.8 mg/dL (8.4-10.2); Carbon Dioxide 23 mmol/L (22-30); Chloride 102 mmol/L (98-107); Estimated CRCL calculation 71 ml/min; Estimated Glomerular Filt Rate > 60; Glucose 92 mg/dL (65-110); Lipase 77 U/L (23-300); Potassium 3.5 mmol/L (3.4-5.0); Sodium 133 mmol/L (137-145); Total Protein 8.1 g/dL (6.3-8.2)
[2025-04-30] MEDS: ASPIRIN 81 MG CHEWABLE TABLET 324 MG PO (12:20)
[2025-04-30 12:26] LABS: NT Pro B Type Natriuretic Pept 31 pg/mL (19.9-100); Troponin I < 0.012 ng/mL (0.000-0.034)
--- NOTE | 2025-04-30 12:42 | PC.NURSE ---
Per ROBERT Urena, administer fluids first and then metoprolol after fluids have infused if needed for HR.
[2025-04-30] MEDS: SODIUM CHLORIDE 0.9% IV 1,000 ML 999 ML IV CONT (12:43)
[2025-04-30 12:44] VITALS: BP 133/90; PULSE 122; RESP 22; O2SAT 99
[2025-04-30 12:44] LABS: Add Urine Microscopic? YES; Appearance Urine Clear (Clear); Glucose Urine UA Negative (Negative); Leukocyte Esterase Ur Negative LEU/UL (Negative); Nitrate Urine Negative (Negative); Non Pathogenic Casts 0-2; Specific Grav Ur 1.005 (1.001-1.035)
[2025-04-30 13:12] VITALS: BP 133/100; PULSE 109; RESP 20; O2SAT 100
[2025-04-30 13:22] LABS: Thyroid Stimulating Hormone Reflex 2.860 uIU/mL (0.465-4.68)
[2025-04-30 13:43] VITALS: PULSE 108
[2025-04-30 13:49] VITALS: BP 137/92; PULSE 105; RESP 16; O2SAT 98
== END 2025-04-30 14:06 | disposition home or self-care (01) ==
PROVIDERS: Emergency Provider Nurse Practitioner Family; PCP Nurse Practitioner Family
DX: M25.512 Pain in left shoulder (principal); R00.0 Tachycardia, unspecified; F41.9 Anxiety disorder, unspecified; I10 Essential (primary) hypertension
CPT/HCPCS: 36415; 71046; 80053; 80307; 81001; 81025; 83690; 83880; 84443; 84484; 85025; 85380; 93005; 96360; 99284; A9270; J7030